=== PATIENT | male | born 1960 | race Caucasian/White ===

== ENCOUNTER 2021-04-23 01:04 | Emergency (ER) | payer MEDICAID, OTHER ==
[~2021-04-23] VITALS: Ht 172.7 cm; Wt 158.8 kg
[2021-04-23 08:08] LABS: Basophils # (auto) 0.1 10 ^3/uL (0-0.2); Basophils % (auto) 0.6 % (0.0-2.0); Eosinophils # (auto) 0.1 10 ^3/uL (0-0.8); Eosinophils % (auto) 1.1 % (0.0-7.0); Hematocrit 46.7 % (41.0-53.0); Hemoglobin 15.3 g/dL (13.5-17.5); Lymphocytes # (auto) 1.6 10 ^3/uL (0.4-5.4); Lymphocytes % (auto) 15.6 % (10.0-50.0); Mean Corpuscular Hemoglobin 30.2 pg (28.0-32.0); Mean Corpuscular Hgb Conc. 32.8 g/dL (32.0-36.0); Mean Corpuscular Volume 92.1 fL (80.0-100.0); Monocytes # (auto) 0.8 10 ^3/uL (0-1.3); Monocytes % (auto) 7.7 % (0.0-12.0); Neutrophils # (auto) 7.9 10 ^3/uL (1.6-8.6); Nucleated Red Blood Cells % 0.1 %; Red Blood Cells 5.07 10^6/uL (4.5-5.90); Red Cell Distribution Width 15.6 % (11.8-14.3); White Blood Cell 10.5 10^3/uL (4.4-10.8)
[2021-04-23] MEDS ORDERED: SODIUM CHLORIDE 0.9% 1,000 ML IV ONE (08:15)
[2021-04-23 08:19] LABS: INR 1.02 (0.9-1.15); Partial Thromboplastin Time 25.1 sec (23.6-33.0)
[2021-04-23 08:21] LABS: Albumin 3.5 g/dL (3.4-5.0); Potassium 4.8 mmol/L (3.5-5.1)
[2021-04-23 08:28] LABS: Urine WBC None Seen /hpf (0 - 3)
[2021-04-23 08:28] LABS: BUN/Creatinine Ratio 20.9; Bilirubin, Total 0.4 mg/dL (0.2-1.0); Total Protein 6.6 g/dL (6.4-8.2)
[2021-04-23 08:38] LABS: Urine Amorphous Crystal FEW /hpf (None Seen); Urine Bacteria NONE SEEN /hpf (None Seen); Urine Blood Negative /uL (Negative); Urine Mucus FEW (None Seen); Urine Specific Gravity 1.031 (1.001-1.035)
[2021-04-23] MEDS ORDERED: NEOMYCIN-BACITRACIN-POLYM 15GM TOP OINT TOP STA (15:57)
[2021-04-23 16:01] VITALS: BP 123/69
== END 2021-04-23 16:08 | disposition home or self-care (01) ==
LOC: ER 01:11
DX: S00.01XA Abrasion of scalp, initial encounter (principal); G47.30 Sleep apnea, unspecified; G47.419 Narcolepsy without cataplexy; E11.65 Type 2 diabetes mellitus with hyperglycemia; I10 Essential (primary) hypertension; Z20.822 Contact with and (suspected) exposure to COVID-19; W18.09XA Striking against other object with subsequent fall, initial encounter; Y93.89 Activity, other specified; Y92.098 Other place in other non-institutional residence as the place of occurrence of the external cause; Y99.8 Other external cause status
CPT/HCPCS: 36415; 70450; 71045; 80053; 81001; 83735; 83880; 84443; 84484; 85025; 85610; 85730; 87426; 93005; 94660; 96360; 96361; 99285; C9803; J7030; U0003

== ENCOUNTER 2021-11-07 18:29 | Inpatient (IN) | payer MEDICAID ==
[~2021-11-07] VITALS: Ht 172.7 cm; Wt 159.3 kg
[2021-11-07 19:29] LABS: Basophils # (auto) 0 10 ^3/uL (0-0.2); Basophils % (auto) 0.3 % (0.0-2.0); Eosinophils # (auto) 0.1 10 ^3/uL (0-0.8); Eosinophils % (auto) 1.1 % (0.0-7.0); Hematocrit 49.9 % (41.0-53.0); Hemoglobin 15.5 g/dL (13.5-17.5); Lymphocytes # (auto) 1.7 10 ^3/uL (0.4-5.4); Lymphocytes % (auto) 19.8 % (10.0-50.0); Mean Corpuscular Hemoglobin 28.4 pg (28.0-32.0); Mean Corpuscular Hgb Conc. 31.1 g/dL (32.0-36.0); Mean Corpuscular Volume 91.3 fL (80.0-100.0); Monocytes # (auto) 0.6 10 ^3/uL (0-1.3); Monocytes % (auto) 7.5 % (0.0-12.0); Neutrophils # (auto) 6.1 10 ^3/uL (1.6-8.6); Neutrophils % (auto) 71.3 % (37.0-80.0); Nucleated Red Blood Cells % 0.2 %; Red Blood Cells 5.46 10^6/uL (4.5-5.90); Red Cell Distribution Width 16.3 % (11.8-14.3); White Blood Cell 8.6 10^3/uL (4.4-10.8)
[2021-11-07 19:33] LABS: Albumin 3.3 g/dL (3.4-5.0); Calcium 8.7 mg/dL (8.5-10.1); Potassium 4.8 mmol/L (3.5-5.1)
[2021-11-07 19:36] LABS: BUN/Creatinine Ratio 12.4; Bilirubin, Total 0.4 mg/dL (0.2-1.0); Total Protein 6.1 g/dL (6.4-8.2)
[2021-11-07] MEDS ORDERED: FUROSEMIDE 40 MG/4 ML VIAL IV ONE (20:00)
[2021-11-07] MEDS ORDERED: methylPREDNISolone SOD SUCC 125 MG/2 ML VL IV ONE (20:00)
[2021-11-07] MEDS ORDERED: InsuLIN REG 1unit/0.01ml Soln (100units/ml) IV ONE (20:15)
[2021-11-07 20:32] LABS: Urine Bacteria NONE SEEN /hpf (None Seen); Urine Blood Negative /uL (Negative); Urine Specific Gravity 1.027 (1.001-1.035); Urine WBC <1 /hpf (0 - 3)
[2021-11-07] MEDS ORDERED: PIPERACILLIN-TAZOB 3.375GM 100 ML IV ONE (21:45)
[2021-11-07] MEDS ORDERED: AZITHROMYCIN 500MG/ 250ML 250 ML IV ONE (21:45)
[2021-11-07] MEDS ORDERED: TEMAZEPAM 15 MG CAP PO PRN (22:00)
[2021-11-07] MEDS ORDERED: DEXTROSE (50%) 50ML SYRG IV PRN (22:00)
[2021-11-07] MEDS ORDERED: ALBUTEROL SULF 2.5 MG/0.5ML(0.5%) NEB SOLN NEB PRN (22:00)
[2021-11-07] MEDS ORDERED: MORPHINE SULFATE INJ 2 MG/ml SYRG IV PRN (22:00)
[2021-11-07] MEDS ORDERED: ONDANSETRON HCL 4 MG/2 ML VIAL IV PRN (22:00)
[2021-11-07] MEDS ORDERED: ACETAMINOPHEN 325 MG TAB PO PRN (22:00)
[2021-11-07] MEDS ORDERED: cefTRIAXone 1GM/50ML D5W 50 ML IV ONE (22:00)
[2021-11-07] MEDS ORDERED: NITROGLYCERIN 0.4 MG SL TAB SL PRN (22:00)
[2021-11-07] MEDS: ATORVASTATIN 20 MG TAB PO SCH (23:54)
[2021-11-08] MEDS ORDERED: DEXTROSE (50%) 50ML SYRG IV PRN ×2 (01:00→06:00)
[2021-11-08 03:43] VITALS: BP 149/89
[2021-11-08] MEDS ORDERED: ACCU-CHEK COMFORT CURVE STRIP VI SCH ×2 (04:00)
[2021-11-08] MEDS ORDERED: InsuLIN REG 1unit/0.01ml Soln (100units/ml) SC SCH ×2 (04:00)
[2021-11-08] MEDS ORDERED: INSULIN LANTUS (GLARGINE) 1 /0.01ml (100units/ml) SC ONE ×3 (06:00→19:30)
[2021-11-08] MEDS ORDERED: InsuLIN R (HUMAN) 100 UNITS in SODIUM CHL 0.9% 99 ML IV SCH (06:00)
[2021-11-08] MEDS: ACCU-CHEK COMFORT CURVE STRIP VI SCH ×9 (06:14→18:00)
[2021-11-08] MEDS ORDERED: InsuLIN REG 1unit/0.01ml Soln (100units/ml) ONE (06:25)
[2021-11-08 06:37] LABS: Basophils # (auto) 0 10 ^3/uL (0-0.2); Basophils % (auto) 0.4 % (0.0-2.0); Eosinophils # (auto) 0 10 ^3/uL (0-0.8); Hematocrit 52.9 % (41.0-53.0); Hemoglobin 17.4 g/dL (13.5-17.5); Lymphocytes # (auto) 0.5 10 ^3/uL (0.4-5.4); Lymphocytes % (auto) 5.5 % (10.0-50.0); Mean Corpuscular Hemoglobin 30.1 pg (28.0-32.0); Mean Corpuscular Hgb Conc. 32.9 g/dL (32.0-36.0); Mean Corpuscular Volume 91.6 fL (80.0-100.0); Monocytes # (auto) 0.2 10 ^3/uL (0-1.3); Monocytes % (auto) 2.1 % (0.0-12.0); Neutrophils # (auto) 7.6 10 ^3/uL (1.6-8.6); Nucleated Red Blood Cells % 0.1 %; Red Blood Cells 5.77 10^6/uL (4.5-5.90); Red Cell Distribution Width 15.9 % (11.8-14.3); White Blood Cell 8.2 10^3/uL (4.4-10.8)
[2021-11-08 06:56] LABS: Albumin 3.6 g/dL (3.4-5.0); Calcium 9.2 mg/dL (8.5-10.1); Potassium 4.8 mmol/L (3.5-5.1)
[2021-11-08 06:58] LABS: BUN/Creatinine Ratio 13.9
[2021-11-08 07:00] LABS: Bilirubin, Total 0.4 mg/dL (0.2-1.0)
[2021-11-08] MEDS ORDERED: AZITHROMYCIN 500MG/ 250ML 250 ML IV SCH (10:00)
[2021-11-08] MEDS ORDERED: methylPREDNISolone SOD SUCC 125 MG/2 ML VL IV SCH (10:00)
[2021-11-08] MEDS: LISINOPRIL 20 MG TAB PO SCH (10:20)
[2021-11-08] MEDS: ENOXAPARIN SOD 40 MG/0.4 ML SYRINGE SC SCH (10:20)
[2021-11-08] MEDS: cefTRIAXone 1GM/50ML D5W 50 ML IV SCH (12:40)
[2021-11-08] MEDS ORDERED: InsuLIN REG 1unit/0.01ml Soln (100units/ml) IV ONE (18:15)
[2021-11-08] MEDS: ATORVASTATIN 20 MG TAB PO SCH (22:09)
[2021-11-08] MEDS ORDERED: CHOL20007 PO (23:25)
[2021-11-08] MEDS ORDERED: POTA10TA51 PO (23:25)
[2021-11-08] MEDS ORDERED: INSLISPI SC (23:25)
[2021-11-08] MEDS ORDERED: FURO1TAB33 PO (23:25)
[2021-11-08] MEDS ORDERED: LISI2.5T47 PO (23:25)
[2021-11-08] MEDS ORDERED: INSLANTI SC (23:25)
[2021-11-09 05:00] VITALS: BP 137/84
[2021-11-09 08:56] VITALS: BP 127/91
[2021-11-09] MEDS ORDERED: cefTRIAXone 1GM/50ML D5W 50 ML IV SCH ×2 (09:00→22:00)
[2021-11-09] MEDS: cefTRIAXone 1GM/50ML D5W 50 ML IV SCH (09:07)
[2021-11-09] MEDS ORDERED: LISI30TA4 PO (09:19)
[2021-11-09] MEDS ORDERED: ATOR20TA50 PO (09:19)
[2021-11-09] MEDS ORDERED: CINN500T PO (09:20)
[2021-11-09] MEDS ORDERED: CHRO400T3 PO (09:20)
[2021-11-09] MEDS: AZITHROMYCIN 500MG/ 250ML 250 ML IV SCH (09:49)
[2021-11-09] MEDS: ENOXAPARIN SOD 40 MG/0.4 ML SYRINGE SC SCH (09:51)
[2021-11-09] MEDS: LISINOPRIL 20 MG TAB PO SCH (09:52)
[2021-11-09] MEDS ORDERED: INSULIN LANTUS (GLARGINE) 1 /0.01ml (100units/ml) SC SCH (10:00)
[2021-11-09] MEDS ORDERED: DEXTROSE (50%) 50ML SYRG IV PRN ×2 (10:15→12:15)
[2021-11-09] MEDS ORDERED: INSULIN LANTUS (GLARGINE) 1 /0.01ml (100units/ml) SC ONE (11:45)
[2021-11-09] MEDS ORDERED: InsuLIN REG 1unit/0.01ml Soln (100units/ml) IV ONE (11:45)
[2021-11-09] MEDS: ACCU-CHEK COMFORT CURVE STRIP VI SCH ×5 (12:02→21:01)
[2021-11-09] MEDS: InsuLIN REG 1unit/0.01ml Soln (100units/ml) SC SCH ×6 (12:03→21:02)
[2021-11-09] MEDS ORDERED: VANCOMYCIN PER PHARMACY 0 MG IV SCH (12:15)
[2021-11-09] MEDS ORDERED: VANCOMYCIN 1GM/250ML 250 ML IV ONE (12:30)
[2021-11-09 12:43] VITALS: BP 138/99
[2021-11-09] MEDS: AMPICILLIN & SULBACTAM SODIUM 3 GM in SODIUM CHL 0.9% 100 ML IV SCH ×2 (15:30→21:36)
[2021-11-09] MEDS ORDERED: FUROSEMIDE 40 MG/4 ML VIAL IV ONE (16:15)
[2021-11-09 16:45] VITALS: BP 144/87
[2021-11-09] MEDS: ATORVASTATIN 20 MG TAB PO SCH (21:36)
[2021-11-09 21:38] VITALS: BP 132/84
[2021-11-09] MEDS: VANCOMYCIN 1GM/250ML 250 ML IV SCH (23:08)
[2021-11-10] MEDS: ACCU-CHEK COMFORT CURVE STRIP VI SCH ×6 (00:53→20:41)
[2021-11-10] MEDS: InsuLIN REG 1unit/0.01ml Soln (100units/ml) SC SCH ×7 (01:01→22:00)
[2021-11-10] MEDS: AMPICILLIN & SULBACTAM SODIUM 3 GM in SODIUM CHL 0.9% 100 ML IV SCH ×4 (03:45→22:08)
[2021-11-10 04:54] VITALS: BP 159/81
[2021-11-10 04:56] VITALS: BP 133/88
[2021-11-10] MEDS: VANCOMYCIN 1GM/250ML 250 ML IV SCH (07:10)
[2021-11-10 09:03] VITALS: BP 132/89
[2021-11-10] MEDS: ENOXAPARIN SOD 40 MG/0.4 ML SYRINGE SC SCH ×2 (10:00→10:28)
[2021-11-10] MEDS: AZITHROMYCIN 500MG/ 250ML 250 ML IV SCH (10:26)
[2021-11-10] MEDS: FUROSEMIDE 40 MG/4 ML VIAL IV SCH (10:26)
[2021-11-10] MEDS: LISINOPRIL 20 MG TAB PO SCH (10:27)
[2021-11-10] MEDS: POTASSIUM CHL 20 Meq TABLET PO SCH (10:27)
[2021-11-10] MEDS: INSULIN LANTUS (GLARGINE) 1 /0.01ml (100units/ml) SC SCH (10:28)
[2021-11-10 13:00] VITALS: BP 127/79
[2021-11-10 16:53] VITALS: BP 111/80
[2021-11-10] MEDS ORDERED: predniSONE 20 MG TAB PO ONE (18:00)
[2021-11-10] MEDS: ATORVASTATIN 20 MG TAB PO SCH (22:08)
[2021-11-10 22:38] VITALS: BP 115/79
[2021-11-11] VITALS (7 sets, daily range): BP systolic 106–149; BP diastolic 52–98
[2021-11-11] MEDS: ACCU-CHEK COMFORT CURVE STRIP VI SCH ×7 (00:26→23:22)
[2021-11-11] MEDS: InsuLIN REG 1unit/0.01ml Soln (100units/ml) SC SCH ×8 (00:27→23:24)
[2021-11-11] MEDS: AMPICILLIN & SULBACTAM SODIUM 3 GM in SODIUM CHL 0.9% 100 ML IV SCH ×4 (04:25→21:43)
[2021-11-11 06:24] LABS: Potassium 3.8 mmol/L (3.5-5.1)
[2021-11-11 06:28] LABS: BUN/Creatinine Ratio 23.2; Calcium 8.8 mg/dL (8.5-10.1)
[2021-11-11] MEDS: predniSONE 20 MG TAB PO SCH (10:30)
[2021-11-11] MEDS: POTASSIUM CHL 20 Meq TABLET PO SCH (10:30)
[2021-11-11] MEDS: AZITHROMYCIN 500MG/ 250ML 250 ML IV SCH (10:30)
[2021-11-11] MEDS: FUROSEMIDE 40 MG/4 ML VIAL IV SCH (10:30)
[2021-11-11] MEDS: ENOXAPARIN SOD 40 MG/0.4 ML SYRINGE SC SCH (10:31)
[2021-11-11] MEDS: LISINOPRIL 20 MG TAB PO SCH (10:31)
[2021-11-11] MEDS: INSULIN LANTUS (GLARGINE) 1 /0.01ml (100units/ml) SC SCH (10:32)
[2021-11-11] MEDS: ATORVASTATIN 20 MG TAB PO SCH (21:43)
[2021-11-12] MEDS: AMPICILLIN & SULBACTAM SODIUM 3 GM in SODIUM CHL 0.9% 100 ML IV SCH ×4 (03:40→21:29)
[2021-11-12] MEDS: InsuLIN REG 1unit/0.01ml Soln (100units/ml) SC SCH ×7 (03:41→23:27)
[2021-11-12] MEDS: ACCU-CHEK COMFORT CURVE STRIP VI SCH ×6 (03:41→23:26)
[2021-11-12 05:52] VITALS: BP 150/89
[2021-11-12 09:00] VITALS: BP 145/76
[2021-11-12] MEDS: predniSONE 20 MG TAB PO SCH (09:07)
[2021-11-12] MEDS: POTASSIUM CHL 20 Meq TABLET PO SCH (09:07)
[2021-11-12] MEDS: LISINOPRIL 20 MG TAB PO SCH (09:08)
[2021-11-12] MEDS: ENOXAPARIN SOD 40 MG/0.4 ML SYRINGE SC SCH (09:08)
[2021-11-12] MEDS: FUROSEMIDE 40 MG/4 ML VIAL IV SCH (09:09)
[2021-11-12] MEDS: INSULIN LANTUS (GLARGINE) 1 /0.01ml (100units/ml) SC SCH (09:23)
[2021-11-12] MEDS: AZITHROMYCIN 500MG/ 250ML 250 ML IV SCH (11:00)
[2021-11-12 13:00] VITALS: BP 150/100
[2021-11-12 17:00] VITALS: BP 133/87
[2021-11-12] MEDS: ATORVASTATIN 20 MG TAB PO SCH (21:29)
[2021-11-12 22:00] VITALS: BP 136/91
[2021-11-13] MEDS: AMPICILLIN & SULBACTAM SODIUM 3 GM in SODIUM CHL 0.9% 100 ML IV SCH ×2 (03:49→09:58)
[2021-11-13] MEDS: ACCU-CHEK COMFORT CURVE STRIP VI SCH ×3 (03:49→12:00)
[2021-11-13] MEDS: InsuLIN REG 1unit/0.01ml Soln (100units/ml) SC SCH ×3 (03:50→12:30)
[2021-11-13 05:00] VITALS: BP 149/86
[2021-11-13 09:00] VITALS: BP 117/87
[2021-11-13] MEDS: ENOXAPARIN SOD 40 MG/0.4 ML SYRINGE SC SCH (09:56)
[2021-11-13] MEDS: FUROSEMIDE 40 MG/4 ML VIAL IV SCH (09:56)
[2021-11-13] MEDS: POTASSIUM CHL 20 Meq TABLET PO SCH (09:57)
[2021-11-13] MEDS: predniSONE 20 MG TAB PO SCH (09:58)
[2021-11-13] MEDS: LISINOPRIL 20 MG TAB PO SCH (09:58)
[2021-11-13] MEDS: INSULIN LANTUS (GLARGINE) 1 /0.01ml (100units/ml) SC SCH (10:30)
[2021-11-13] MEDS: AZITHROMYCIN 500MG/ 250ML 250 ML IV SCH (11:30)
[2021-11-13 13:00] VITALS: BP 149/97
[2021-11-13 14:20] VITALS: BP 149/97
== END 2021-11-13 15:42 | disposition home or self-care (01) | DRG 139 ==
LOC: ER 18:30 → UNDOADMIN 21:53 → TELE 21:53 → CENTRAL 11-08 23:54 → TELE-CENTR 11-10 07:43
PROVIDERS: ADMIT Nurse Practitioner; ATTEND Internal Medicine Nephrology
PROC: 5A09357 Assistance with Respiratory Ventilation, Less than 24 Consecutive Hours, Continuous Positive Airway Pressure (ICD-10-PCS; principal; 2021-11-09)
PROC: 5A09357 Assistance with Respiratory Ventilation, Less than 24 Consecutive Hours, Continuous Positive Airway Pressure (ICD-10-PCS; 2021-11-10)
PROC: 5A09357 Assistance with Respiratory Ventilation, Less than 24 Consecutive Hours, Continuous Positive Airway Pressure (ICD-10-PCS; 2021-11-11)
PROC: 5A09357 Assistance with Respiratory Ventilation, Less than 24 Consecutive Hours, Continuous Positive Airway Pressure (ICD-10-PCS; 2021-11-12)
DX: J18.9 Pneumonia, unspecified organism (principal); J96.21 Acute and chronic respiratory failure with hypoxia; R78.81 Bacteremia; E11.649 Type 2 diabetes mellitus with hypoglycemia without coma; I50.32 Chronic diastolic (congestive) heart failure; I11.0 Hypertensive heart disease with heart failure; J44.0 Chronic obstructive pulmonary disease with (acute) lower respiratory infection; E66.2 Morbid (severe) obesity with alveolar hypoventilation; E11.65 Type 2 diabetes mellitus with hyperglycemia; Z20.822 Contact with and (suspected) exposure to COVID-19; J44.1 Chronic obstructive pulmonary disease with (acute) exacerbation; K76.0 Fatty (change of) liver, not elsewhere classified; Z68.43 Body mass index [BMI] 50.0-59.9, adult
CPT/HCPCS: 36415; 36600; 71045; 71250; 80048; 80053; 81001; 82565; 82805; 82962; 83036; 83605; 83735; 83880; 84484; 85025; 85049; 87040; 87070; 87077; 87081; 87186; 87205; 87804; 93970; 94660; 96365; 96366; 96368; 96372; 96375; G0378; J0696; J1815; J2543

== ENCOUNTER 2022-02-20 12:22 | Emergency (ER) | payer MEDICAID ==
[~2022-02-20] VITALS: Ht 185.4 cm; Wt 153.0 kg
[~2022-02-20 12:22] MED LIST: ATOR20TA50 PO; CHOL20007 PO; CHRO400T3 PO; CINN500T PO; FURO1TAB33 PO; INSLANTI SC; INSLISPI SC; LISI30TA4 PO; POTA10TA51 PO
[2022-02-20 15:26] VITALS: BP 115/77
[2022-02-20] MEDS ORDERED: IBUP800T26 PO (17:07)
== END 2022-02-20 17:09 | disposition home or self-care (01) ==
LOC: ER 12:27
DX: M65.4 Radial styloid tenosynovitis [de Quervain] (principal)
CPT/HCPCS: 36415; 73130; 84550

== ENCOUNTER 2022-12-07 07:25 | Inpatient (IN) | payer MEDICAID ==
[~2022-12-07] VITALS: Ht 177.8 cm; Wt 140.0 kg
[~2022-12-07 07:25] MED LIST changes: +IBUP-1455 PO; -LISI30TA4 PO; +LISI30TA8 PO
[2022-12-07] MEDS ORDERED: amLODIPine BESYLATE 5 MG TAB PO ONE (07:45)
[2022-12-07 08:05] LABS: Basophils # (auto) 0 10 ^3/uL (0-0.2); Basophils % (auto) 0.4 % (0.0-2.0); Eosinophils # (auto) 0.1 10 ^3/uL (0-0.8); Eosinophils % (auto) 0.9 % (0.0-7.0); Hematocrit 48.2 % (41.0-53.0); Hemoglobin 16.4 g/dL (13.5-17.5); Lymphocytes # (auto) 0.6 10 ^3/uL (0.4-5.4); Lymphocytes % (auto) 5.9 % (10.0-50.0); Mean Corpuscular Hemoglobin 30.6 pg (28.0-32.0); Mean Corpuscular Volume 89.9 fL (80.0-100.0); Monocytes % (auto) 9.8 % (0.0-12.0); Neutrophils # (auto) 8.6 10 ^3/uL (1.6-8.6); Nucleated Red Blood Cells % 0.3 %; Red Blood Cells 5.37 10^6/uL (4.5-5.90); Red Cell Distribution Width 15.2 % (11.8-14.3); White Blood Cell 10.4 10^3/uL (4.4-10.8)
[2022-12-07 08:14] LABS: Urine Bacteria NONE SEEN /hpf (None Seen); Urine Blood Negative /uL (Negative); Urine Clarity Clear (Clear); Urine Protein, UAD Negative (Negative); Urine Specific Gravity 1.016 (1.001-1.035); Urine Urobilinogen Normal (Negative); Urine WBC <1 /hpf (0 - 3)
[2022-12-07 08:26] LABS: Alanine Aminotransferase 23 U/L (7-40); Albumin 4.6 g/dL (3.2-4.8); Alkaline Phosphatase 82 U/L (46-116); Anion Gap 9 (5-15); Aspartate Aminotransferase 18 U/L (13-40); BUN/Creatinine Ratio 10.5 (10.0-20.0); Bilirubin, Total 0.8 mg/dL (0.2-1.0); Blood Urea Nitrogen 10 mg/dL (9-23); Calcium 9.5 mg/dL (8.5-10.1); Carbon Dioxide 25 mmol/L (20-30); Chloride 102 mmol/L (98-107); Glucose 117 mg/dL (74-106); Sodium 136 mmol/L (136-145); Total Protein 6.9 g/dL (5.7-8.2)
[2022-12-07] MEDS ORDERED: FUROSEMIDE 40 MG/4 ML VIAL IV ONE (08:30)
[2022-12-07 08:33] LABS: Urine Color Straw (Yellow)
[2022-12-07] MEDS ORDERED: ONDANSETRON HCL 4 MG/2 ML VIAL IV PRN (11:45)
[2022-12-07] MEDS ORDERED: HYDROcodone-ACET 5/325MG TAB PO PRN (11:45)
[2022-12-07] MEDS ORDERED: hydrALAZINE HCL 20 MG/ML VL IV PRN (11:45)
[2022-12-07] MEDS ORDERED: NITROGLYCERIN 0.4 MG SL TAB SL PRN (11:45)
[2022-12-07] MEDS ORDERED: DEXTROSE (50%) 50ML SYRG IV PRN (11:45)
[2022-12-07] MEDS ORDERED: MORPHINE SULFATE INJ 2 MG/ml SYRG IV PRN ×2 (11:45)
[2022-12-07 14:14] VITALS: PULSE 102; RESP 19; O2SAT 96
[2022-12-07] MEDS: ACETAMINOPHEN 325 MG TAB PO PRN ×2 (16:28→23:17)
[2022-12-07] MEDS: InsuLIN REG 1unit/0.01ml Soln (100units/ml) SC SCH ×2 (16:33→23:22)
[2022-12-07] MEDS: ACCU-CHEK COMFORT CURVE STRIP VI SCH ×2 (16:35→23:17)
[2022-12-07 17:32] VITALS: BP 149/88; PULSE 101; RESP 25; O2SAT 96
[2022-12-07] MEDS: FUROSEMIDE 40 MG/4 ML VIAL IV SCH (18:33)
[2022-12-07 19:40] VITALS: PULSE 92; RESP 24; O2SAT 94
[2022-12-07 22:39] VITALS: PULSE 91
[2022-12-07 23:00] VITALS: O2SAT 96
[2022-12-07 23:09] VITALS: BP 114/70; PULSE 93; RESP 19; RESP 20; TEMP 98.7; O2SAT 93
[2022-12-08] VITALS (8 sets, daily range): BP systolic 122–142; BP diastolic 71–85; PULSE 69–99; RESP 18–22; TEMP 97.6–99.7; O2SAT 90–98
[2022-12-08 05:50] LABS: Hematocrit 48.4 % (41.0-53.0); Hemoglobin 16.2 g/dL (13.5-17.5); Mean Corpuscular Hemoglobin 30.5 pg (28.0-32.0); Mean Corpuscular Hgb Conc. 33.6 g/dL (32.0-36.0); Mean Corpuscular Volume 90.8 fL (80.0-100.0); Red Blood Cells 5.33 10^6/uL (4.5-5.90); Red Cell Distribution Width 15.1 % (11.8-14.3); White Blood Cell 8.5 10^3/uL (4.4-10.8)
[2022-12-08 06:06] LABS: Basophils % (manual) 0 (0.0-2.0); Eosinophils % (manual) 0 (0-7); Metamyelocytes % 0; Myelocytes % 0; Promyelocytes % 0
[2022-12-08 06:07] LABS: Blast Cells 0; Reactive Lymphocytes 0
[2022-12-08 06:18] LABS: Alanine Aminotransferase 18 U/L (7-40); Albumin 4.4 g/dL (3.2-4.8); Alkaline Phosphatase 81 U/L (46-116); Anion Gap 8 (5-15); Aspartate Aminotransferase 12 U/L (13-40); BUN/Creatinine Ratio 9.1 (10.0-20.0); Bilirubin, Total 0.6 mg/dL (0.2-1.0); Blood Urea Nitrogen 10 mg/dL (9-23); Calcium 9.3 mg/dL (8.7-10.4); Carbon Dioxide 27 mmol/L (20-30); Chloride 100 mmol/L (98-107); Glucose 122 mg/dL (74-106); Potassium 3.6 mmol/L (3.5-5.1); Sodium 135 mmol/L (136-145); Total Protein 6.8 g/dL (5.7-8.2)
[2022-12-08] MEDS: FUROSEMIDE 40 MG/4 ML VIAL IV SCH ×2 (06:41→17:28)
[2022-12-08] MEDS: ACCU-CHEK COMFORT CURVE STRIP VI SCH ×4 (06:41→22:27)
[2022-12-08] MEDS: InsuLIN REG 1unit/0.01ml Soln (100units/ml) SC SCH ×4 (06:46→22:27)
[2022-12-08 08:11] LABS: Band Neutrophils % (manual) 1; Lymphocytes % (manual) 17 (10.0-50.0); Monocytes % (manual) 8 (0-12); Platelet Estimate Adequate
[2022-12-08] MEDS: ENOXAPARIN SOD 40 MG/0.4 ML SYRINGE SC SCH (10:59)
[2022-12-08] MEDS: NIFEdipine ER 30 MG TAB PO SCH (10:59)
[2022-12-09 05:00] VITALS: BP 140/72; PULSE 87; RESP 16; TEMP 98.4; O2SAT 94
[2022-12-09] MEDS: FUROSEMIDE 40 MG/4 ML VIAL IV SCH (05:56)
[2022-12-09] MEDS: InsuLIN REG 1unit/0.01ml Soln (100units/ml) SC SCH ×2 (05:56→11:29)
[2022-12-09] MEDS: ACCU-CHEK COMFORT CURVE STRIP VI SCH ×2 (05:57→11:29)
[2022-12-09 08:00] VITALS: PULSE 90
[2022-12-09 08:47] VITALS: BP 129/80; PULSE 90; RESP 18; TEMP 97.6; O2SAT 91
[2022-12-09 09:15] VITALS: O2SAT 96
[2022-12-09] MEDS: NIFEdipine ER 30 MG TAB PO SCH (09:27)
[2022-12-09] MEDS: ENOXAPARIN SOD 40 MG/0.4 ML SYRINGE SC SCH (09:27)
[2022-12-09 13:00] VITALS: BP 134/76; PULSE 84; RESP 18; TEMP 97.7; O2SAT 95
== END 2022-12-09 16:00 | disposition home or self-care (01) | DRG 194 ==
LOC: ER 07:25 → TELE 11:42 → TELE-WESTW 22:42
PROVIDERS: ADMIT Internal Medicine; ATTEND Internal Medicine
DX: I11.0 Hypertensive heart disease with heart failure (principal); J96.02 Acute respiratory failure with hypercapnia; E66.2 Morbid (severe) obesity with alveolar hypoventilation; I16.0 Hypertensive urgency; I50.33 Acute on chronic diastolic (congestive) heart failure; E78.5 Hyperlipidemia, unspecified; E11.9 Type 2 diabetes mellitus without complications; Z79.4 Long term (current) use of insulin; Z68.41 Body mass index [BMI] 40.0-44.9, adult; Z91.148 Patient's other noncompliance with medication regimen for other reason
CPT/HCPCS: 36415; 71045; 80053; 81001; 82962; 83036; 83880; 84443; 84484; 85007; 85025; 85027; 93005; 93306; 96374; 99291; G0378; J1815

== ENCOUNTER 2023-05-20 07:10 | Inpatient (IN) | payer MEDICAID ==
[~2023-05-20] VITALS: Ht 172.7 cm; Wt 145.4 kg
[~2023-05-20 07:10] MED LIST changes: -IBUP-1455 PO; -LISI30TA8 PO
[2023-05-20 07:38] LABS: Basophils # (auto) 0.1 10 ^3/uL (0-0.2); Basophils % (auto) 0.6 % (0.0-2.0); Eosinophils # (auto) 0.2 10 ^3/uL (0-0.8); Hemoglobin 19.8 g/dL (13.5-17.5); Monocytes # (auto) 0.9 10 ^3/uL (0-1.3)
[2023-05-20 07:54] LABS: Alanine Aminotransferase 13 U/L (7-40); Albumin 4.4 g/dL (3.2-4.8); Alkaline Phosphatase 82 U/L (46-116); Anion Gap 8 (5-15); Aspartate Aminotransferase 17 U/L (13-40); BUN/Creatinine Ratio 9.5 (10.0-20.0); Bilirubin, Total 0.6 mg/dL (0.2-1.0); Blood Urea Nitrogen 9 mg/dL (9-23); Calcium 9.9 mg/dL (8.5-10.1); Carbon Dioxide 26 mmol/L (20-30); Chloride 101 mmol/L (98-107); Glucose 199 mg/dL (74-106); Potassium 4.5 mmol/L (3.5-5.1); Sodium 135 mmol/L (136-145); Total Protein 6.9 g/dL (5.7-8.2)
[2023-05-20 07:58] LABS: Eosinophils % (auto) 1.7 % (0.0-7.0); Lymphocytes # (auto) 1.7 10 ^3/uL (0.4-5.4); Monocytes % (auto) 8.7 % (0.0-12.0); Neutrophils # (auto) 7.9 10 ^3/uL (1.6-8.6); Nucleated Red Blood Cells % 0.7 %; Red Blood Cells 6.59 10^6/uL (4.5-5.90); Red Cell Distribution Width 17.7 % (11.8-14.3); White Blood Cell 10.8 10^3/uL (4.4-10.8)
[2023-05-20 08:00] LABS: Urine Bacteria NONE SEEN /hpf (None Seen); Urine Blood Negative /uL (Negative); Urine Clarity Clear (Clear); Urine Protein, UAD Negative (Negative); Urine Specific Gravity 1.029 (1.001-1.035); Urine Urobilinogen Normal (Negative); Urine WBC 1 /hpf (0 - 3); Urine pH 5.5 (5.0-8.0)
[2023-05-20 08:01] LABS: Urine Color Straw (Yellow)
[2023-05-20] MEDS: LABETALOL HCL 5 MG/ML 4ML SYRINGE IV ONE (08:54)
[2023-05-20] MEDS: FUROSEMIDE 40 MG/4 ML VIAL IV ONE (08:54)
[2023-05-20 11:07] VITALS: PULSE 100; RESP 20; O2SAT 93
[2023-05-20] MEDS: REGADENOSON 0.4 MG/5 ML SYRG IV ONE ×2 (11:47→12:11)
[2023-05-20] MEDS ORDERED: ONDANSETRON HCL 4 MG/2 ML VIAL IV PRN (15:45)
[2023-05-20] MEDS ORDERED: HYDROcodone-ACET 5/325MG TAB PO PRN ×2 (15:45)
[2023-05-20] MEDS ORDERED: NITROGLYCERIN 0.4 MG SL TAB SL PRN (15:45)
[2023-05-20] MEDS ORDERED: MORPHINE SULFATE INJ 2 MG/ml SYRG IV PRN (15:45)
[2023-05-20 17:05] LABS: LDL Cholesterol 76 mg/dL (< 100); Triglycerides 207 mg/dL (< 150)
[2023-05-20 17:06] LABS: HDL Cholesterol 35 mg/dL (40-59)
[2023-05-20 17:07] LABS: Cholesterol 131 mg/dL (< 200)
[2023-05-20] MEDS: cefTRIAXone 1GM/50ML D5W 50 ML IV ONE (18:48)
[2023-05-20] MEDS: FUROSEMIDE 20 MG/2 ML VIAL IV SCH (18:50)
[2023-05-20] MEDS: ALBUTEROL SULF 2.5 MG/0.5ML(0.5%) NEB SOLN NEB PRN (20:02)
[2023-05-20] MEDS ORDERED: POTASSIUM CHL 10 Meq TABLET PO SCH (22:00)
[2023-05-20] MEDS: INSULIN LANTUS (GLARGINE) 1 /0.01ml (100units/ml) SC SCH (22:22)
[2023-05-21] VITALS (9 sets, daily range): BP systolic 112–134; BP diastolic 74–98; PULSE 78–105; RESP 15–22; TEMP 97.4–98; O2SAT 91–97
[2023-05-21 07:34] LABS: Chloride 99 mmol/L (98-107); Potassium 4.1 mmol/L (3.5-5.1); Sodium 134 mmol/L (136-145)
[2023-05-21 07:35] LABS: Anion Gap 7 (5-15); Carbon Dioxide 28 mmol/L (20-30)
[2023-05-21 07:36] LABS: Calcium 9.8 mg/dL (8.5-10.1)
[2023-05-21 07:40] LABS: BUN/Creatinine Ratio 10.6 (10.0-20.0); Blood Urea Nitrogen 11 mg/dL (9-23); Glucose 181 mg/dL (74-106)
[2023-05-21 07:43] LABS: White Blood Cell 11.2 10^3/uL (4.4-10.8)
[2023-05-21 07:44] LABS: Hemoglobin 19.8 g/dL (13.5-17.5); Mean Corpuscular Hemoglobin 29.8 pg (28.0-32.0); Mean Corpuscular Hgb Conc. 32.6 g/dL (32.0-36.0); Mean Corpuscular Volume 91.3 fL (80.0-100.0); Red Blood Cells 6.66 10^6/uL (4.5-5.90); Red Cell Distribution Width 18.6 % (11.8-14.3)
[2023-05-21 07:50] LABS: Hematocrit 60.8 % (41.0-53.0)
[2023-05-21 07:52] LABS: Band Neutrophils % (manual) 0; Basophils % (manual) 0 (0.0-2.0); Blast Cells 0; Metamyelocytes % 0; Myelocytes % 0; Promyelocytes % 0; Reactive Lymphocytes 0
[2023-05-21] MEDS: ATORVASTATIN 20 MG TAB PO SCH (09:09)
[2023-05-21] MEDS: ASPirin-EC 81 mg tab PO SCH (09:09)
[2023-05-21] MEDS: cefTRIAXone 1GM/50ML D5W 50 ML IV SCH (09:09)
[2023-05-21 09:28] LABS: Eosinophils % (manual) 2 (0-7); Giant Platelets Few; Lymphocytes % (manual) 20 (10.0-50.0); Monocytes % (manual) 11 (0-12); Platelet Estimate Adequate; RBC Morphology Normal
[2023-05-21] MEDS: ENOXAPARIN SOD 40 MG/0.4 ML SYRINGE SC SCH (10:00)
[2023-05-21 14:31] LABS: INR 1.1 (0.9-1.15); Prothrombin Time 11.5 sec (9.3-11.8)
[2023-05-21] MEDS ORDERED: INSU100I70 SC (16:46)
[2023-05-21] MEDS ORDERED: FURO1TAB31 PO (16:46)
[2023-05-21] MEDS ORDERED: ASPI81CH74 PO (16:46)
[2023-05-21] MEDS ORDERED: LOSA100T58 PO (16:46)
[2023-05-21] MEDS ORDERED: FINE10TA PO (16:46)
[2023-05-21] MEDS ORDERED: EMPA1TAB3 PO (16:46)
[2023-05-21] MEDS ORDERED: HYDR12.59 PO (16:46)
[2023-05-21] MEDS ORDERED: SEMA2INJ3 SC (16:46)
[2023-05-21] MEDS ORDERED: GLIM4TAB42 PO (16:46)
[2023-05-21] MEDS ORDERED: DEXTROSE (50%) 50ML SYRG IV PRN (17:00)
[2023-05-21] MEDS: ACCU-CHEK COMFORT CURVE STRIP VI SCH (18:03)
[2023-05-21] MEDS: InsuLIN REG 1unit/0.01ml Soln (100units/ml) SC SCH ×2 (18:04→21:23)
[2023-05-21 20:19] LABS: Amphetamine Screen, Urine Neg (NEGATIVE); Barbiturate Scree,Urine Neg (NEGATIVE); Benzodiazephine Screen, Urine Neg (NEGATIVE); Cocaine Screen, Urine Neg (NEGATIVE)
[2023-05-21 20:20] LABS: Cannabinoid Screen, Urine Neg (NEGATIVE); Opiate Scree,Urine Neg (NEGATIVE); Phencyclidine Screen, Urine Neg (NEGATIVE)
[2023-05-22] VITALS (18 sets, daily range): BP systolic 122–137; BP diastolic 84–95; PULSE 78–93; RESP 13–20; TEMP 97.5–98.6; O2SAT 91–100
[2023-05-22] MEDS: IODIXANOL 320MG/ML 100ML BTL IV ONE (14:11)
[2023-05-22] MEDS: LIDOCAINE 2%HCL (LOCAL ANESTH.) INJ 20ML MDV ONE (14:11)
[2023-05-22] MEDS: ANGIOMAX 250 MG VIAL IV ONE (14:36)
[2023-05-22] MEDS: VERAPAMIL 2.5MG/ML INJ 2ML VIAL IV ONE (14:37)
[2023-05-22] MEDS: HEPARIN SODIUM (PORCINE) 5000 UNITS/ML 1ML VIAL ONE (14:37)
[2023-05-22] MEDS: fentaNYL CITRATE 100 MCG/2 ML VL ONE (14:37)
[2023-05-22] MEDS: MIDAZOLAM HCL 2MG/2ML 2ml VIAL (1mg/ml) ONE (14:37)
[2023-05-22] MEDS ORDERED: FURO20TA3 PO (16:02)
[2023-05-22] MEDS ORDERED: POTA-180 PO (16:02)
[2023-05-22] MEDS ORDERED: HYDR-3682 PO (16:04)
[2023-05-22] MEDS: CARVEDILOL 3.125 MG TAB PO SCH (21:52)
[2023-05-23] VITALS (7 sets, daily range): BP systolic 122–145; BP diastolic 73–94; PULSE 63–89; RESP 18–22; TEMP 97.8–98.3; O2SAT 92–96
[2023-05-23 07:17] LABS: Chloride 100 mmol/L (98-107); Potassium 3.8 mmol/L (3.5-5.1); Sodium 134 mmol/L (136-145)
[2023-05-23 07:18] LABS: Anion Gap 9 (5-15); Calcium 9.1 mg/dL (8.5-10.1); Carbon Dioxide 25 mmol/L (20-30)
[2023-05-23 07:23] LABS: BUN/Creatinine Ratio 9.8 (10.0-20.0); Blood Urea Nitrogen 9 mg/dL (9-23); Glucose 174 mg/dL (74-106)
[2023-05-23 07:44] LABS: Magnesium 2.2 mg/dL (1.6-2.6)
[2023-05-23] MEDS: POTASSIUM CHL 10 Meq TABLET PO SCH (09:52)
[2023-05-23] MEDS: LISINOPRIL 5 MG TAB PO SCH (09:52)
[2023-05-23] MEDS: FUROSEMIDE 40 MG/4 ML VIAL IV SCH (09:53)
[2023-05-23] MEDS ORDERED: CAR3125T PO (14:37)
== END 2023-05-23 17:24 | disposition home or self-care (01) | DRG 192 ==
LOC: ER 07:10 → TELE 15:43 → TELE-WESTW 05-21 08:40
PROVIDERS: ADMIT Hospitalist; ATTEND Hospitalist
PROC: 4A023N7 Measurement of Cardiac Sampling and Pressure, Left Heart, Percutaneous Approach (ICD-10-PCS; principal; 2023-05-22)
PROC: B2111ZZ Fluoroscopy of Multiple Coronary Arteries using Low Osmolar Contrast (ICD-10-PCS; 2023-05-22)
DX: I11.0 Hypertensive heart disease with heart failure (principal); I42.0 Dilated cardiomyopathy; E11.65 Type 2 diabetes mellitus with hyperglycemia; J44.1 Chronic obstructive pulmonary disease with (acute) exacerbation; G47.30 Sleep apnea, unspecified; E66.01 Morbid (severe) obesity due to excess calories; Z82.49 Family history of ischemic heart disease and other diseases of the circulatory system; Z79.4 Long term (current) use of insulin; Z68.33 Body mass index [BMI] 33.0-33.9, adult; I50.33 Acute on chronic diastolic (congestive) heart failure
CPT/HCPCS: 36415; 71045; 78452; 80048; 80053; 80061; 80307; 81001; 82962; 83036; 83735; 83880; 85007; 85025; 85027; 85379; 85610; 86850; 86900; 86901; 93005; 93017; 93306; 93458; 93970; 94640; 96365; 96375; 99152; 99291; G0378; J1815; J2250; Q9967

== ENCOUNTER 2024-04-02 15:07 | Inpatient (IN) | payer MEDICAID ==
[~2024-04-02] VITALS: Ht 172.7 cm; Wt 148.0 kg
[~2024-04-02 15:07] MED LIST changes: +ASPI81CH74 PO; +CAR3125T PO; -CHRO400T3 PO; -CINN500T PO; +EMPA1TAB3 PO; +FINE10TA PO; -FURO1TAB33 PO; +FURO20TA3 PO; +GLIM4TAB42 PO; +HYDR-3682 PO; -INSLANTI SC; +INSU100I70 SC; +LOSA-535 PO; +POTA-180 PO; -POTA10TA51 PO; +SEMA2INJ3 SC
--- NOTE | 2024-04-02 15:44 | ECG ---
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
[2024-04-02 16:00] VITALS: PULSE 80; RESP 20; O2SAT 92
--- NOTE | 2024-04-02 16:10 | ED.PDOC ---
History of Present Illness HPI Comments This is a 63-year-old male who comes in with chief complaint of shortness a breath. The symptoms have been increasing over the past one month. The patient was currently not on home oxygen. The patient has a history of possible CHF. The patient checks his pulse oximeter and states that it was be low 80%. Upon arrival, the patient's oxygen saturation went up to around 84% on room air. The patient was then placed on oxygen immediately. There has been no chest pain or vomiting. The patient was having leg swelling as well as redness to the legs. The patient states that he is compliant with his medications and takes Lasix at times. Chief Complaint: Shortness of Breath Time Seen by MD: 15:15 Primary Care Provider: SHANTI Reviewed Notes: Nurses Notes, Medications, Allergies (No allergies to medications) Allergies: Coded Allergies: NO KNOWN ALLERGIES (Unverified , 02/20/22) Home Meds Active Scripts Carvedilol (Coreg) 3.125 Mg Tab, 1 TAB PO BID, #90 TAB 1 Refill Prov:YUN REAVES MD 05/23/23 Reported Medications Hydroxyzine Hcl (Hydroxyzine Hcl) 25 Mg Tab, 1 TAB PO BID 05/22/23 Furosemide (Furosemide) 20 Mg Tab, 1 TAB PO TID 05/22/23 Potassium Chloride (Potassium Chloride ER) 20 Meq Tab, 1 TAB PO DAILY 05/22/23 Semaglutide (Ozempic) 2 Mg/3 Ml Inj, 2 MG SC QWEEKLY, INJ 05/21/23 Insulin Glargine-Yfgn (Insulin Glargine) 100 Unit/Ml Inj, 35 UNIT SC HS, INJ 05/21/23 Empagliflozin (Jardiance) 25 Mg Tab, 25 MG PO DAILY, TAB 05/21/23 Finerenone (Kerendia) 10 Mg Tab, 10 MG PO DAILY, TAB 05/21/23 Losartan Potassium (Losartan Potassium) 100 Mg Tab, 100 MG PO DAILY for 30 Days, MG 05/21/23 Aspirin (Aspirin 81 Low Dose) 81 Mg Chw, 81 MG PO DAILY, TAB.CHEW 05/21/23 Glimepiride (Glimepiride) 4 Mg Tab, 1 TAB PO DAILY, #30 TAB 5 Refills 05/21/23 Atorvastatin Calcium (ATORVASTATIN CALCIUM) 20 Mg Tab, 20 MG PO DAILY, TAB 11/09/21 Cholecalciferol (VITAMIN D3) 2,000 Unit Tab, 1 TAB PO DAILY, #30 TAB 5 Refills 11/08/21 Insulin Lispro (Human) (Humalog) 100 Unit/Ml Inj, SC, INJ 11/08/21 Information Source: Patient Mode of Arrival: Ambulatory Severity: Moderate Timing: Days Duration: Since onset Prehospital treatment: None Associated signs and symptoms Shortness of breaths with leg swelling and redness to the legs. The patient denies any chest pain Past Medical History PAST MEDICAL HISTORY: CHF, DM, High Lipids, HTN Surgical History: Denies all surgeries Family History Family History: Family hx of heart karin Social History Smoker: Non-Smoker Alcohol: Occasionally Drugs: Denies Drug Use Lives In: Home Constitutional: denies: chills, diaphoresis, fatigue, fever, malaise, sweats, weakness, others EENTM: denies: blurred vision, double vision, ear bleeding, ear discharge, ear drainage, ear pain, ear ringing, eye pain, eye redness, hearing loss, mouth pain, mouth swelling, nasal discharge, nose bleeding, nose congestion, nose pain, photophobia, tearing, throat pain, throat swelling, voice changes, others Respiratory: reports: cough, shortness of breath; denies: hemoptysis, orthopnea, SOB at rest, SOB with excertion, stridor, wheezing, others Cardiovascular: denies: chest pain, dizzy spells, diaphoresis, Dyspnea on exertion, edema, irregular heart beat, left arm pain, lightheadedness, palpitations, PND, syncope, others Gastrointestinal: denies: abdomen distended, abdominal pain, blood streaked bowels, constipated, diarrhea, dysphagia, difficulty swallowing, hematemesis, melena, nausea, poor appetite, poor fluid intake, rectal bleeding, rectal pain, vomiting, others Genitourinary: denies: burning, dysuria, flank pain, frequency, hematuria, incontinence, penile discharge, penile sore, pain, testicle pain, testicle swelling, urgency, others Neurological: denies: dizziness, fainting, headache, left sided numbness, left sided weakness, numbness, paresthesia, pre-existing deficit, right sided numbn ess, right sided weakness, seizure, speech problems, tingling, tremors, weakness, others Musculoskeletal: reports: others (Bilateral leg swelling); denies: back pain, gout, joint pain, joint swelling, muscle pain, muscle stiffness, neck pain Integumetry: denies: bruises, change in color, change in hair/nails, dryness, laceration, lesions, lumps, rash, wounds, others Allergic/Immunocompromised: denies: Difficulty Healing, Frequent Infections, Hives, Itching, others Hematologic/Lymphatic: denies: anemia, blood clots, easy bleeding, easy bruising, swollen glands, others Endocrine: denies: excessive hunger, excessive sweating, excessive thirst, excessive urination, flushing, intolerance to cold, intolerance to heat, unexplained weight gain, unexplained weight loss, others Psychiatric: denies: anxiety, bipolar disorder, depression, hopeless, panic disorder, schizophrenia, sleepless, suicidal, others Physical Exam General Appearance: Moderate Distress, Obese HEENT: Normal ENT Inspection, Pharynx Normal, TMs Normal Neck: Full Range of Motion, Non-Tender, Normal, Normal Inspection Respiratory: Chest Non-Tender, Decreased Breath Sounds, No Accessory Muscle Use, Rales, Respiratory Distress Cardiovascular: No Edema, No JVD, No Murmur, No Gallop, Normal Peripheral Pulses, Regular Rate/Rhythm Breast Exam: Deferred Gastrointestinal: No Organomegaly, Non Tender, No Pulsatile Mass, Normal Bowel Sounds, Soft Genitalia: Deferred Pelvic: Deferred Rectal: Deferred Extremities: No calf tenderness, Normal capillary refill, Pedal edema Musculoskeletal : Apperance: Normal Neurologic: Alert, hydraulic spinner II-XII nml as Tested, Motor Weakness, Normal Affect, Normal Mood, No Sensory Deficits Cerebellar Function: Normal Reflexes: Normal Skin: Dry, Normal Color, Warm Lymphatic: No Adenopathy Was a procedure done? Was a procedure done?: No EKG EKG : Pulse Rate (adult): 79 [place]: Normal Cardiac Rhythm: NSR Block: None ST: Nonsp Differential Dx Considerations may include: CHF, acute on chronic diastolic heart failure, ACS, MT X-Ray, Labs, Meds, VS Vital Signs Date Time Temp Pulse Resp B/P (MAP) Pulse Ox O2 Delivery O2 Flow Rate FiO2 04/02/24 18:00 90 18 139/80 (99) 97 04/02/24 17:04 153/92 04/02/24 17:00 78 22 153/92 (112) 91 04/02/24 16:16 77 04/02/24 16:15 80 04/02/24 16:10 79 04/02/24 16:00 96.9 80 20 173/109 (130) 93 96.9 04/02/24 16:00 80 20 92 Nasal Cannula* 2 28 04/02/24 15:43 79 04/02/24 15:33 98.7 90 23 176/98 (124) 88 04/02/24 15:32 23 88 Room Air* 0 21 Lab Test 04/02/24 17:15 04/02/24 16:16 Range/Units Troponin I High Sensitivity 14 14 </=54 ng/L White Blood Count 8.1 4.4-10.8 10^3/uL Red Blood Count 5.86 4.5-5.90 10^6/uL Hemoglobin 18.4 H 13.5-17.5 g/dL Hematocrit 55.7 H 41.0-53.0 % Mean Corpuscular Volume 95.0 80.0-100.0 fL Mean Corpuscular Hemoglobin 31.4 28.0-32.0 pg Mean Corpuscular Hemoglobin Concent 33.0 32.0-36.0 g/dL Red Cell Distribution Width 15.5 H 11.8-14.3 % Platelet Count 127 L 140-450 10^3/uL Mean Platelet Volume 10.6 6.9-10.8 fL Neutrophils (%) (Auto) 62.2 37.0-80.0 % Lymphocytes (%) (Auto) 26.9 10.0-50.0 % Monocytes (%) (Auto) 9.1 0.0-12.0 % Eosinophils (%) (Auto) 1.2 0.0-7.0 % Basophils (%) (Auto) 0.6 0.0-2.0 % Neutrophils # (Auto) 5.0 1.6-8.6 10 ^3/uL Lymphocytes # (Auto) 2.2 0.4-5.4 10 ^3/uL Monocytes # (Auto) 0.7 0-1.3 10 ^3/uL Eosinophils # (Auto) 0.1 0-0.8 10 ^3/uL Basophils # (Auto) 0 0-0.2 10 ^3/uL Nucleated Red Blood Cells 0.4 % D-Dimer, Quantitative 0.22 0.0-0.49 mg/L FEU Sodium Level 134 L 136-145 mmol/L Potassium Level 4.4 3.5-5.1 mmol/L Chloride Level 101 98-107 mmol/L Carbon Dioxide Level 27 20-31 mmol/L Anion Gap 6 5-15 Blood Urea Nitrogen 14 9-23 mg/dL Creatinine 0.81 0.700-1.30 mg/dL Glomerular Filtration Rate Calc 98 >90 mL/min BUN/Creatinine Ratio 17.3 10.0-20.0 Serum Glucose 171 H 74-106 mg/dL Calcium Level 9.6 8.7-10.4 mg/dL B-Type Natriuretic Peptide 33.90 0-100 pg/mL Current Medications Medications (Trade) Dose Ordered Sig/Ana M Route Start Time Stop Time Status Last Admin Furosemide (Lasix Injection) 40 mg ONCE ONCE IV 04/02/24 16:00 04/02/24 16:01 DC 04/02/24 17:04 IV Hep-Lock was established The patient was given Lasix 40 mg IV push The patient's CBC and chemistry panel are within normal limits The patient's troponin level x2 is negative The patient was being admitted to the hospitalist A cardiology consult will be obtained Images Reviewed?: Images reviewed and evaluated by me Time of 1ST Reevaluation: 16:10 Reevaluation 1ST: Unchanged Patient Education/Counseling: Diagnosis, Treatment, Prognosis Family Education/Counseling: No Family Present Departure 1 Departure Time of Disposition: 19:22 Impression: Primary Impression: Acute on chronic diastolic heart failure Disposition: ADMITTED INPATIENT Admit to: Tele Condition: Fair Critical Care Note Critical Care Time?: Yes (45 min-critical care time only) Stability Stability form required: Yes Unstable for transfer: Telemetry monitoring (Telemetry monitoring required), ED Physician Assesment (Clinical assesment) Heart Score Heart Score: Heart Score Response (Comments) Value History Moderate Suspicious 1 EKG Repolarization Disturb 1 Age 45-64 1 Risk Factors >3 or Hx ASHD 2 Troponin Normal limit 0 Total 5 RANDY BRUSH MD Apr 02, 2024 16:10
--- NOTE | 2024-04-02 16:20 | DVH ---
XY CHEST PORTABLE, HISTORY: sob COMPARISON: XY CHEST PORTABLE on DOS: 05/20/23, XY CHEST PORTABLE on DOS: 12/07/22, CXRP on DOS: 2 XY CHEST PORTABLE on DOS: 05/20/23, XY CHEST PORTABLE on DOS: 12/07/22, CXRP on DOS: 11/07/21 TECHNICAL DATA: 1 view of the chest was obtained. FINDINGS: Lines and tubes: None Cardiomediastinal silhouette: enlarged Pulmonary vasculature: prominent Lung expansion: normal Lung airspace: normal Lung interstitium: normal Pleura: normal Pneumothorax: no Bones: Unremarkable Other: no IMPRESSION: Cardiomegaly with pulmonary congestion.
[2024-04-02 16:32] LABS: Basophils # (auto) 0 10 ^3/uL (0-0.2); Eosinophils # (auto) 0.1 10 ^3/uL (0-0.8); Red Blood Cells 5.86 10^6/uL (4.5-5.90)
[2024-04-02 16:34] LABS: Basophils % (auto) 0.6 % (0.0-2.0); Eosinophils % (auto) 1.2 % (0.0-7.0); Hematocrit 55.7 % (41.0-53.0); Hemoglobin 18.4 g/dL (13.5-17.5); Lymphocytes # (auto) 2.2 10 ^3/uL (0.4-5.4); Lymphocytes % (auto) 26.9 % (10.0-50.0); Mean Corpuscular Hemoglobin 31.4 pg (28.0-32.0); Monocytes # (auto) 0.7 10 ^3/uL (0-1.3); Monocytes % (auto) 9.1 % (0.0-12.0); Neutrophils % (auto) 62.2 % (37.0-80.0); Nucleated Red Blood Cells % 0.4 %; Platelet Count (auto) 127 10^3/uL (140-450); Red Cell Distribution Width 15.5 % (11.8-14.3); White Blood Cell 8.1 10^3/uL (4.4-10.8)
[2024-04-02 16:49] LABS: Chloride 101 mmol/L (98-107); Potassium 4.4 mmol/L (3.5-5.1)
[2024-04-02 16:51] LABS: Anion Gap 6 (5-15); BUN/Creatinine Ratio 17.3 (10.0-20.0); Blood Urea Nitrogen 14 mg/dL (9-23)
[2024-04-02 16:52] LABS: Calcium 9.6 mg/dL (8.7-10.4); Carbon Dioxide 27 mmol/L (20-31); Glucose 171 mg/dL (74-106); Sodium 134 mmol/L (136-145)
[2024-04-02] MEDS: FUROSEMIDE 40 MG/4 ML VIAL IV ONE (17:04)
[2024-04-02 19:30] VITALS: PULSE 84; RESP 17; O2SAT 94
[2024-04-02 20:00] VITALS: PULSE 89
[2024-04-02] MEDS ORDERED: NITROGLYCERIN 0.4 MG SL TAB SL PRN (20:45)
[2024-04-02] MEDS ORDERED: ONDANSETRON HCL 4 MG/2 ML VIAL IV PRN (20:45)
[2024-04-02] MEDS ORDERED: HYDROcodone-ACET 5/325MG TAB PO PRN (20:45)
[2024-04-02] MEDS ORDERED: MORPHINE SULFATE INJ 2 MG/ml SYRG IV PRN ×2 (20:45)
[2024-04-02] MEDS ORDERED: hydrALAZINE HCL 20 MG/ML VL IV PRN (20:45)
[2024-04-02] MEDS ORDERED: DOCUSATE SOD 100 MG CAP PO PRN (20:45)
[2024-04-02] MEDS ORDERED: ACETAMINOPHEN 325 MG TAB PO PRN (20:45)
[2024-04-02] MEDS ORDERED: DEXTROSE (50%) 50ML SYRG IV PRN (21:00)
[2024-04-02 22:03] VITALS: BP 141/86; PULSE 88; RESP 16; O2SAT 91
[2024-04-02] MEDS: ACCU-CHEK COMFORT CURVE STRIP VI SCH (22:35)
[2024-04-02] MEDS: InsuLIN REG 1unit/0.01ml Soln (100units/ml) SC SCH (23:07)
[2024-04-02] MEDS: ALBUTEROL SULF 2.5 MG/0.5ML(0.5%) NEB SOLN NEB SCH (23:50)
[2024-04-02 23:51] VITALS: PULSE 102; PULSE 88; RESP 16; O2SAT 92; O2SAT 98
[2024-04-02] MEDS: IPRATROPIUM BROM 0.5 MG/2.5ML INH SOL NEB SCH (23:51)
[2024-04-02 23:58] VITALS: PULSE 83; RESP 16; O2SAT 95
[2024-04-03] VITALS (14 sets, daily range): BP systolic 119–128; BP diastolic 70–79; PULSE 69–97; RESP 16–22; TEMP 97.5–97.6; O2SAT 88–96
[2024-04-03 00:49] LABS: Urine Bacteria None Seen /hpf (None Seen)
[2024-04-03 00:57] LABS: Urine Blood Negative /uL (Negative); Urine Clarity Clear (Clear); Urine Color Light-Yellow (Yellow); Urine Mucus FEW (None Seen); Urine Protein, UAD Negative (Negative); Urine Specific Gravity 1.013 (1.001-1.035); Urine Squamous Epithelial Cell None Seen /hpf (<5); Urine Urobilinogen Normal (Negative)
--- NOTE | 2024-04-03 01:29 | DVHHP2 ---
MATEUS ENGLISH OPERATIONS VICE PRESIDENT 04/03/24 0129: History of Present Illness Reason for Visit: Shortness of breath History of Present Illness 63-year-old male with past medical history DM, hypertension presents with complaints of worsening shortness of breath and leg swelling over the previous month. On arrival to the emergency department the patient was found to be hypoxic with an oxygen saturation 84%, requiring supplemental O2 at 3 L nasal cannula to maintain an O2 saturation of 93%. Patient he is not oxygen dependent at home. Patient states that he does follow with Dr. Fulton for Cardiology. However denies any significant diagnosis of congestive heart failure. During the Emergency department evaluation BNP was negative at 33; troponins negative at . CXR was significant for pulmonary congestion. At this time patient denies any fevers, chills, chest pain, nausea, vomiting, diaphoresis, palpitations. Cardiovascular: HTN Endocrine: Diabetes Smoke: No ALCOHOL: none Drugs: None Lives: with Family Review of Systems Constitutional: No: Fever, Chills, Sweats, Weakness, Malaise, Other Eyes: No: Pain, Vision change, Conjunctivae inflammation, Eyelid inflammation, Other, Redness ENT: No: Ear pain, Ear discharge, Nose pain, Nose discharge, Nose congestion, Mouth pain, Mouth swelling, Throat pain, Throat swelling, Other Respiratory: Shortness of breath, SOB with excertion; No: Cough, Dry, Wheezing, Hemoptysis, Pleuritic Pain, Sputum, Wheezing, Other Cardiovascular: No: Chest Pain, Palpitations, Orthopnea, Paroxysmal Noc. Dyspnea, Edema, Lt Headedness, Other Gastrointestinal: No: Nausea, Vomiting, Abdominal Pain, Diarrhea, Constipation, Melena, Hematochezia, Other Genitourinary: No Dysuria, No Frequency, No Incontinence, No Hematuria, No Retention, No Other Musculoskeletal: No: other, neck pain, shoulder pain, arm pain, back pain, hand pain, leg pain, foot pain Skin: No: Rash, Lesions, Jaundice, Bruising, Other Neurological: No: Weakness, Numbness, Incoordination, Change in speech, Confusion, Seizures, Other Allergies: Coded Allergies: NO KNOWN ALLERGIES (Unverified , 02/20/22) Medications Current Medications Medications Dose Ordered Sig/Ana M Route Start Time Stop Time Status Last Admin Dose Admin Docusate Sodium 100 mg BIDPRN PRN PO 04/02/24 20:45 Acetaminophen 650 mg Q6HP PRN PO 04/02/24 20:45 Acetaminophen/ Hydrocodone Bitart 1 tab Q6HPRN PRN PO 04/02/24 20:45 Ondansetron HCl 4 mg Q4HP PRN IV 04/02/24 20:45 Morphine Sulfate 2 mg Q4HPRN PRN IV 04/02/24 20:45 Enoxaparin Sodium 40 mg DAILY SC 04/03/24 10:00 Nitroglycerin 0.4 mg Q5MINP PRN SL 04/02/24 20:45 Morphine Sulfate 2 mg Q30M PRN IV 04/02/24 20:45 Albuterol 2.5 mg Q6HR NEB 04/03/24 00:00 04/02/24 23:50 2.5 MG Ipratropium [place] 0.5 mg Q6HR NEB 04/03/24 00:00 04/02/24 23:51 0.5 MG Aspirin 81 mg DAILY PO 04/03/24 10:00 Atorvastatin Calcium 20 mg DAILY PO 04/03/24 10:00 Hydralazine HCl 10 mg Q4HPRN PRN IV 04/02/24 20:45 Diagnostic Test (Pha) 1 strip ACHS 04/02/24 22:00 04/02/24 22:35 1 STRIP Insulin Human Regular ACHS SC 04/02/24 22:00 04/02/24 23:07 8 UNITS Dextrose 50 ml UD PRN IV 04/02/24 21:00 Exam Vital Signs Vital Signs Date Time Temp Pulse Resp B/P (MAP) Pulse Ox O2 Delivery O2 Flow Rate FiO2 04/03/24 00:53 75 17 148/90 (109) 93 04/02/24 23:51 Nasal Cannula* 4 36 04/02/24 23:13 98.8 98.8 General Appearance: Alert, Oriented X3, Cooperative HEENT: Atraumatic, PERRLA, EOMI Respiratory: Other (Diminished air exchange.) Cardiovascular: Regular rate, Normal S1, Normal S2 Abdominal: Normal bowel sounds, Soft, No tenderness Extremities: No clubbing, No cyanosis, Normal pulses, Other (BLE edematous) Skin: No rashes, No breakdown Neuro: Normal speech, Strength at 5/5 X4 ext Psych/Mental Status: Mood NL Labs/Xrays Labs Test 04/03/24 00:25 04/02/24 22:32 04/02/24 19:17 04/02/24 16:16 Range/Units Urine Color Light-yellow Yellow Urine Clarity Clear Clear Urine pH 5.0 5.0-9.0 Urine Specific [place] 1.013 1.001-1.035 Urine Protein Negative Negative Urine Ketones Negative Negative Urine Blood Negative Negative /uL Urine Nitrite Negative Negative Urine Bilirubin Negative Negative Urine Urobilinogen Normal Negative mg/dL Urine Leukocyte Esterase Negative Negative /uL Urine RBC None seen 0 - 3 /hpf Urine Microscopic WBC 0-3 /HPF Urine Squamous Epithelial Cells None seen <5 /hpf Urine Bacteria None seen None Seen /hpf Urine Mucus Few None Seen Urine Glucose 2+ H Normal mg/dL POC Glucose 335 H 70-106 mg/dl Troponin I High Sensitivity 15 </=54 ng/L White Blood Count 8.1 4.4-10.8 10^3/uL Red Blood Count 5.86 4.5-5.90 10^6/uL Hemoglobin 18.4 H 13.5-17.5 g/dL Hematocrit 55.7 H 41.0-53.0 % Mean Corpuscular Volume 95.0 80.0-100.0 fL Mean Corpuscular Hemoglobin 31.4 28.0-32.0 pg Mean Corpuscular Hemoglobin Concent 33.0 32.0-36.0 g/dL Red Cell Distribution Width 15.5 H 11.8-14.3 % Platelet Count 127 L 140-450 10^3/uL Mean Platelet Volume 10.6 6.9-10.8 fL Neutrophils (%) (Auto) 62.2 37.0-80.0 % Lymphocytes (%) (Auto) 26.9 10.0-50.0 % Monocytes (%) (Auto) 9.1 0.0-12.0 % Eosinophils (%) (Auto) 1.2 0.0-7.0 % Basophils (%) (Auto) 0.6 0.0-2.0 % Neutrophils # (Auto) 5.0 1.6-8.6 10 ^3/uL Lymphocytes # (Auto) 2.2 0.4-5.4 10 ^3/uL Monocytes # (Auto) 0.7 0-1.3 10 ^3/uL Eosinophils # (Auto) 0.1 0-0.8 10 ^3/uL Basophils # (Auto) 0 0-0.2 10 ^3/uL Nucleated Red Blood Cells 0.4 % D-Dimer, Quantitative 0.22 0.0-0.49 mg/L FEU Sodium Level 134 L 136-145 mmol/L Potassium Level 4.4 3.5-5.1 mmol/L Chloride Level 101 98-107 mmol/L Carbon Dioxide Level 27 20-31 mmol/L Anion Gap 6 5-15 Blood Urea Nitrogen 14 9-23 mg/dL Creatinine 0.81 0.700-1.30 mg/dL Glomerular Filtration Rate Calc 98 >90 mL/min BUN/Creatinine Ratio 17.3 10.0-20.0 Serum Glucose 171 H 74-106 mg/dL Calcium Level 9.6 8.7-10.4 mg/dL B-Type Natriuretic Peptide 33.90 0-100 pg/mL Assessment/Plan Assessment/Plan Hypoxia Acute vs Chronic Congestive heart failure (05/20/23 estimated LVEF 45%) BLE edema DM Plan Admit telemetry Cardiology consult. Echocardiogram. As needed anti-hypertensive for optimal BP management. Defer need for diuretic therapy to cardiology (BNP normal). Bronchodilators. As needed supplemental oxygen to maintain oxygen saturation greater than 93%. Blood glucose checks ACHS with regular insulin sliding scale coverage for optimal glycemic management. GI ppx pepcid / DVT ppx lovenox Plan discussed with: Patient My Orders Orders - MATEUS ENGLISH NP Procedure Category Date Status Time Admit ADMIT 04/02/24 Transmitted 20:45 Code Status CODE 04/02/24 Transmitted 20:45 Vital Signs ANGEL 04/02/24 In Process 20:45 Review Orders With ANGEL 04/02/24 In Process Adm. 20:45 Encourage Activity As ANGEL 04/02/24 In Process Tolerate 20:45 Consistent DIET 04/03/24 Transmitted Carb(Ccho)Diabetes Breakfast Oxygen By Face Mask RT 04/02/24 Transmitted 20:45 Pulse Ox Cont Per Day RT 04/02/24 Logged 20:45 Docusate Sodium PHA 04/02/24 In Process Capsule (Colace 20:45 Acetaminophen Tablet PHA 04/02/24 In Process (Tylenol Tablet) 20:45 Notify Of Changes ANGEL 04/02/24 In Process From Base 20:45 Advance Directive ANGEL 04/02/24 In Process 20:45 Echo 2d Mode Cardiac US 1/23/25 Logged DOP 20:45 Basic Metabolic Panel LAB 04/03/24 Logged 05:00 Basic Metabolic Panel LAB 04/04/24 Verified 05:00 Basic Metabolic Panel LAB 04/05/24 Verified 05:00 Basic Metabolic Panel LAB 04/06/24 Verified 05:00 Basic Metabolic Panel LAB 04/07/24 Verified 05:00 Complete Blood Count LAB 04/03/24 Logged 05:00 Complete Blood Count LAB 04/04/24 Verified 05:00 Complete Blood Count LAB 04/05/24 Verified 05:00 Complete Blood Count LAB 04/06/24 Verified 05:00 Complete Blood Count LAB 04/07/24 Verified 05:00 Patient Condition ORDERS 04/02/24 Transmitted 20:45 Allergies ANGEL 04/02/24 In Process 20:45 Hydrocodone-Acet PHA 04/02/24 In Process 5/325mg Tab ([place] 20:45 Ondansetron Hcl PHA 04/02/24 In Process (Zofran) 20:45 Morphine Sulfate PHA 04/02/24 In Process Injection 20:45 Enoxaparin Sodium PHA 04/03/24 In Process (Lovenox) 10:00 Sequential ANGEL 04/02/24 In Process Compression Device Nitroglycerin PHA 04/02/24 In Process Sublingual (Ntrostat 20:45 Morphine Sulfate PHA 04/02/24 In Process Injection 20:45 Stat Ekg For Chest ANGEL 04/02/24 In Process Pain 20:45 Notify Of Changes ANGEL 04/02/24 In Process From Base 20:45 Maintenance Man For ANGEL 04/02/24 In Process 24 Hours 20:45 Emergency Dysrhythmia ANGEL 04/02/24 In Process Protocol 20:45 Rhythm Strips Once ANGEL 04/02/24 In Process Every Shift 20:45 Oxygen By Nasal RT 04/02/24 Transmitted Cannula 20:45 * Cardiology Consult CONS 04/02/24 Transmitted 20:45 Albuterol Medneb PHA 04/03/24 In Process (Ventolin Medneb) 00:00 Ipratropium Medneb PHA 04/03/24 In Process (Atrovent Medneb) 00:00 Aspirin Enteric PHA 04/03/24 In Process Coated Tablet 10:00 Atorvastatin (Lipitor) PHA 04/03/24 In Process 10:00 Hydralazine Injection PHA 04/02/24 In Process (Apresoline Inject 20:45 Glucose Blood PHA 04/02/24 In Process (Accu-Chek Comfort 22:00 Insulin R (Human) PHA 04/02/24 In Process (Insulin R) 22:00 Dextrose 50% Syringe PHA 04/02/24 In Process 21:00 Date of Service: Apr 03, 2024 Billing Provider: YUN REAVES MD Common Visit Codes: NOT BILLABLE YUN REAVES MD 04/03/24 1459: Review of Systems Allergies: Coded Allergies: NO KNOWN ALLERGIES (Unverified , 02/20/22) Additional Comments Additional Comments Additional Comments Patient's chart is reviewed and discussed with the nurse practitioner. Patient is seen and evaluated by me this afternoon. I agree with the nurse practitioner's evaluation, documentation, assessment and care plan as outlined. MATEUS ENGLISH NP Apr 03, 2024 01:29 YUN REAVES MD Apr 03, 2024 14:59
[2024-04-03 06:16] LABS: Basophils # (auto) 0 10 ^3/uL (0-0.2); Basophils % (auto) 0.6 % (0.0-2.0); Eosinophils # (auto) 0.1 10 ^3/uL (0-0.8); Hemoglobin 18.2 g/dL (13.5-17.5); Lymphocytes # (auto) 1.9 10 ^3/uL (0.4-5.4); Nucleated Red Blood Cells % 0.2 %; Red Cell Distribution Width 15.6 % (11.8-14.3)
[2024-04-03 06:19] LABS: Eosinophils % (auto) 1.3 % (0.0-7.0); Hematocrit 53.7 % (41.0-53.0); Lymphocytes % (auto) 25.5 % (10.0-50.0); Mean Corpuscular Hemoglobin 32.2 pg (28.0-32.0); Mean Corpuscular Hgb Conc. 33.8 g/dL (32.0-36.0); Mean Corpuscular Volume 95.3 fL (80.0-100.0); Monocytes # (auto) 0.8 10 ^3/uL (0-1.3); Monocytes % (auto) 10.2 % (0.0-12.0); Neutrophils # (auto) 4.6 10 ^3/uL (1.6-8.6); Neutrophils % (auto) 62.4 % (37.0-80.0); Platelet Count (auto) 127 10^3/uL (140-450); Red Blood Cells 5.64 10^6/uL (4.5-5.90); White Blood Cell 7.4 10^3/uL (4.4-10.8)
[2024-04-03 06:32] LABS: Anion Gap 6 (5-15); Calcium 9.9 mg/dL (8.7-10.4); Carbon Dioxide 30 mmol/L (20-31); Chloride 98 mmol/L (98-107)
[2024-04-03 06:33] LABS: Sodium 134 mmol/L (136-145)
[2024-04-03 06:39] LABS: BUN/Creatinine Ratio 14.9 (10.0-20.0); Blood Urea Nitrogen 14 mg/dL (9-23)
[2024-04-03 06:41] LABS: Glucose 256 mg/dL (74-106)
[2024-04-03] MEDS: ATORVASTATIN 20 MG TAB PO SCH (07:41)
[2024-04-03] MEDS: ASPirin-EC 81 mg tab PO SCH (07:42)
[2024-04-03] MEDS: ENOXAPARIN SOD 40 MG/0.4 ML SYRINGE SC SCH (07:45)
--- NOTE | 2024-04-03 13:35 | ECG ---
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
[2024-04-03] MEDS ORDERED: DEXTROSE (50%) 50ML SYRG IV PRN (15:00)
[2024-04-03 15:32] LABS: Cholesterol 166 mg/dL (< 200); HDL Cholesterol 43 mg/dL (40-59)
--- NOTE | 2024-04-03 15:33 | DVH ---
CLINICAL HISTORY: Bilateral lower extremity swelling. COMPARISON: US BILAT LOWER DVT on DOS: 05/20/23, BLDVT on DOS: 11/08/21, BI LOWER DVT on DOS: 11/08/21 TECHNIQUE: Bilateral lower extremity venous duplex exam was performed. Grayscale, color flow, and spe ctral waveform analysis was performed. The deep veins of the lower extremity were evaluated for compr ession, phasic flow, and augmentation. Color flow and spectral waveform analysis were performed. FINDINGS: This examination demonstrates normal compression, augmentation, and phasic flow of both low er extremities. No evidence for echogenic thrombus within the common femoral, femoral, and popliteal veins. In addition, the calf veins demonstrated normal compression and color flow. IMPRESSION: There is no evidence for DVT in either lower extremity.
[2024-04-03 15:47] LABS: LDL Cholesterol 101 mg/dL (< 100); Triglycerides 193 mg/dL (< 150)
[2024-04-03 16:11] LABS: COVID19 ANTIGEN SOFIA FIA NEGATIVE (NEGATIVE); Rapid Influenza A Negative (Negative); Rapid Influenza B Negative (Negative)
--- NOTE | 2024-04-03 16:55 | DVHSR ---
APPROVED REPORT EXAM: Two-dimensional and M-mode echocardiogram with Doppler and color Doppler. Blood Pressure: 134/92 mmHg INDICATION Pulmonary congestion CHF? RISK FACTORS Height: 68, Weight: 327 DIMENSIONS LVDd4.8 (3.8-5.7cm)LA (2D) (1.9-4.0cm)Aortic Root4.0 (2.0-3.7cm) LVDs3.6 (2.5-4.0cm)LA (MM) (1.9-4.0cm)Aortic Cusp Exc1.6 (1.5-2.0cm) EF (%) 50.0 (55-70%)Rt. Atrium (1.9-4.0cm)Asc. Aorta cm Mitral Valve MitralMitral Stenosis E wave0.61m/sMV Mean GR.mmHg A wave0.95m/sMV Peak GR.mmHg E/A ratio0.62D MVAcm2 DECEL [id number] 1/2 Timems Aortic Valve Aortic ValveAortic Stenosis V10.93m/Rayna Mean GR.5mmHg V21.46m/Rayna Peak GR.8mmHg LVOT Diameter2.0 (1.8-2.4cm)Doppler AVA2.00cm2 Pulmonic Valve V21.05m/s Tricuspid Valve TR Velocity2.64m/s [id number] Other Information Technically limited study due to body habitus and patient position. Conclusion Technically difficult study. Difficult acoustic windows. Sinus rhythm. Concentric LVH with aortic root enlargement. Dilation of the ascending aorta. Valves appear to be structurally normal. EF of 60% with normal RV function Doppler is unremarkable. No pericardial effusion masses or vegetations.
--- NOTE | 2024-04-03 17:17 | DVH ---
CTA CHEST INDICATION: resp failure TECHNIQUE: Multidetector CTA of the chest was performed of the chest with 100 cc of intravenous contr ast. PULMONARY ANGIOGRAPHY PROTOCOL was utilized using a bolus-tracking technique centered on the paola n pulmonary artery. Axial, coronal and sagittal multiplanar and MIP reformats were performed. Radiation Dose Information: CT Dose: CTDI volume is 29 mGy. Dose-length product is 1131 mGy*cm The dose indicators for CT are the volume Computed Tomography (CT) Dose Index (CTDIvol) and the Dose Length Product (DLP), and are measured in units of mGy and mGy-cm, respectively. These indicators are not patient dose, but values generated from the CT scanner acquisition factors. The report includes radiation exposure data for exposures received during this examination. Comparison: None Findings: Pulmonary artery: There is no evidence of a pulmonary arterial filling defect to suggest pulmonary e mbolism. The main pulmonary artery appears prominent in size measuring 4 cm in diameter. Lungs/Pleura: There is volume loss and pleural-parenchymal scarring in the right lower lobe. There i s also curvilinear scarring versus atelectasis in the left lower lobe. There is no lung consolidation . There is no pleural effusion or pneumothorax. Heart/Vascular Structures: Heart size is in the upper limits of normal. There is no pericardial eff usion. The thoracic aorta demonstrates normal caliber. Lymph Nodes: There are small subcentimeter mediastinal lymph nodes. The esophagus appears mildly dil ated. There is no hilar or axillary lymphadenopathy. Musculoskeletal: No acute osseous abnormality. Upper abdomen: There is fatty infiltration of the liver. There is a 6.4 cm cyst in the left kidney. The remaining visualized solid intra-abdominal structures appear within normal limits. IMPRESSION: 1. There is no evidence of a pulmonary arterial filling defect to suggest pulmonary embolism. 2. There is volume loss with pleural-parenchymal scarring in the right lower lobe. There is no lung c onsolidation or pleural effusion. 3. Main pulmonary artery is prominent in size. This can be seen in the setting of pulmonary arterial hypertension. HS:Y
[2024-04-03] MEDS: BUMETANIDE 1mg/4ml VIAL (0.25mg/ml) IV SCH (17:44)
[2024-04-03] MEDS: ACCU-CHEK COMFORT CURVE STRIP VI SCH (17:45)
[2024-04-03] MEDS: InsuLIN REG 1unit/0.01ml Soln (100units/ml) SC SCH (17:58)
[2024-04-03] MEDS: POTASSIUM CHLORIDE 8 MEQ TAB PO SCH (21:02)
[2024-04-03] MEDS: INSULIN LANTUS (GLARGINE) 1 /0.01ml (100units/ml) SC SCH (21:04)
[2024-04-03] MEDS ORDERED: methylPREDNISolone SOD SUCC 40 MG/ML VL IV SCH (22:00)
--- NOTE | 2024-04-03 23:47 | DVHINCON2 ---
Date of service: Apr 03, 2024 Referring Physician Jose Chase NP Reason for Consultation Acute hypoxic respiratory failure History of Present Illness A 63-year-old man with past medical history of DM and hypertension who presented to ED on 04/02/24 with complaints of worsening shortness of breath and leg swelling over the previous month. On arrival to the emergency department the patient was found to be hypoxic with an oxygen saturation 84%, requiring supplemental O2 at 3 L nasal cannula to maintain an O2 saturation of 93%. Patient is not oxygen dependent at home. He follows with Dr. Fulton for Cardiology; however, denies diagnosis of congestive heart failure. On workup in ED, BNP was negative at 33; troponins negative at . CXR was significant for pulmonary congestion. Patient was admitted for further care and pulmonary consultation is requested for evaluation and management of acute hy poxic respiratory failure. Review of Systems: 14-point review of systems negative unless otherwise noted above. Past Medical History: DM and hypertension. Past Surgical History: None Medications: Reviewed. Allergies: No known drug allergies. Family History: Diabetes mellitus Hypertension. Arthritis Social History: Nonsmoker. No alcohol or illicit drug use. Family History: Arthritis G8 MOTHER, Age: 88 Diabetes mellitus G8 MOTHER, Age: 88 Hypertension G8 FATHER, , Age: 80 Allergies: Coded Allergies: NO KNOWN ALLERGIES (Unverified , 02/20/22) Home Meds Active Scripts Losartan Potassium (Losartan Potassium) 50 Mg Tab, 1 TAB PO DAILY, #90 TAB 1 Refill Prov:YUN REAVES MD 04/05/24 Furosemide (Furosemide) 40 Mg Tab, 1.5 TAB PO DAILY, #90 TAB 3 Refills Take one and half tablet (60 mg) twice a day for next five days. Then continue one and half tablet (60 mg) daily. Prov:YUN REAVES MD 04/05/24 Insulin Glargine-Yfgn (Insulin Glargine) 100 Unit/Ml Inj, 50 UNIT SC HS, #10 INJ Prov:YUN REAVES MD 04/05/24 Carvedilol (Coreg) 3.125 Mg Tab, 1 TAB PO BID, #90 TAB 1 Refill Prov:YUN REAVES MD 05/23/23 Reported Medications Semaglutide (Ozempic) 2 Mg/3 Ml Inj, 2 MG SC QWEEKLY, INJ 05/21/23 Empagliflozin (Jardiance) 25 Mg Tab, 25 MG PO DAILY, TAB 05/21/23 Finerenone (Kerendia) 10 Mg Tab, 10 MG PO DAILY, TAB 05/21/23 Aspirin (Aspirin 81 Low Dose) 81 Mg Chw, 81 MG PO DAILY, TAB.CHEW 05/21/23 Atorvastatin Calcium (ATORVASTATIN CALCIUM) 20 Mg Tab, 20 MG PO DAILY, TAB 11/09/21 Cholecalciferol (VITAMIN D3) 2,000 Unit Tab, 1 TAB PO DAILY, #30 TAB 5 Refills 11/08/21 Insulin Lispro (Human) (Humalog) 100 Unit/Ml Inj, SC, INJ 11/08/21 Discontinued Reported Medications Furosemide (Furosemide) 20 Mg Tab, 1 TAB PO TID 05/22/23 Losartan Potassium (Losartan Potassium) 100 Mg Tab, 100 MG PO DAILY for 30 Days, MG 05/21/23 Glimepiride (Glimepiride) 4 Mg Tab, 1 TAB PO DAILY, #30 TAB 5 Refills 05/21/23 Hydroxyzine Hcl (Hydroxyzine Hcl) 25 Mg Tab, 1 TAB PO BID 05/22/23 Potassium Chloride (Potassium Chloride ER) 20 Meq Tab, 1 TAB PO DAILY 05/22/23 Current Medications Current Medications Medications (Trade) Dose Ordered Sig/Ana M Route PRN Reason Start Time Stop Time Status Last Admin Enoxaparin Sodium (Lovenox) 40 mg DAILY SC 04/03/24 10:00 04/03/24 07:45 Albuterol (Ventolin Medneb) 2.5 mg Q6HR NEB 04/03/24 00:00 04/03/24 19:18 Ipratropium [place] (Atrovent Medneb) 0.5 mg Q6HR NEB 04/03/24 00:00 04/03/24 19:18 Aspirin (Ecotrin Enteric Coated Tablet) 81 mg DAILY PO 04/03/24 10:00 04/03/24 07:42 Atorvastatin Calcium (Lipitor) 20 mg DAILY PO 04/03/24 10:00 04/03/24 07:41 Budesonide (Pulmicort) 0.5 mg BID NEB 04/03/24 22:00 Methylprednisolone Sodium Succinate (Solu Medrol) 20 mg BID IV 04/03/24 22:00 04/03/24 14:58 DC Famotidine (Pepcid Tablet) 20 mg DAILY PO 04/04/24 10:00 Diagnostic Test (Pha) (Accu-Chek Comfort Curve T) 1 strip Q6HR 04/03/24 18:00 04/03/24 17:45 Insulin Human Regular (InsuLIN R) Q6HR SC 04/03/24 18:00 04/03/24 17:58 Dextrose 50 ml UD PRN IV Blood Sugar LESS THAN 60 04/03/24 15:00 Insulin Glargine (Lantus) 35 units HS SC 04/03/24 22:00 04/03/24 21:04 Bumetanide (Bumex Injection) 1 mg BIDD IV 04/03/24 18:00 04/03/24 17:44 Potassium Chloride (Klor-Con Tablet) 8 meq BID PO 04/03/24 22:00 04/03/24 21:02 Vital Signs Vital Signs Date Time Temp Pulse Resp B/P (MAP) Pulse Ox O2 Delivery O2 Flow Rate FiO2 04/03/24 21:00 97.6 87 20 128/79 (95) 95 97.6 04/03/24 19:38 Oxymizer 8 N/A Physical Exam Gen.: Patient lying in bed in no apparent distress. On supplemental oxygen. Head: Normocephalic, atraumatic. Eyes: EOMI/PERRLA. Ears: Normal hearing. Normal anatomy. Neck/trachea: Trachea midline, supple. Nose: Normal external anatomy. Mouth: Moist mucous membranes. Chest: Decreased air entry bilaterally. No wheezing or rhonchi. Cardiovascular: Positive S1, positive S2. Regular rate and rhythm. Abdomen: Positive bowel sounds in all 4 quadrants. Soft, non-tender, non- distended. : Deferred. Rectal: Deferred. Skin: Warm, dry. Intact. Extremities: 2+ radial pulses bilaterally. No lower extremity edema. Neuro: Awake, alert, oriented x3. No gross motor or sensory deficits. Cranial nerves II through XII intact. Gait not assessed. Labs/Diagnostic Data Labs Test 04/03/24 20:50 04/03/24 14:45 04/03/24 05:41 04/03/24 00:25 Range/Units POC Glucose 319 H 70-106 mg/dl Influenza Type A Antigen Negative Negative Influenza Type B Antigen Negative Negative SARS-CoV-2 Antigen (Rapid) Negative NEGATIVE White Blood Count 7.4 4.4-10.8 10^3/uL Red Blood Count 5.64 4.5-5.90 10^6/uL Hemoglobin 18.2 H 13.5-17.5 g/dL Hematocrit 53.7 H 41.0-53.0 % Mean Corpuscular Volume 95.3 80.0-100.0 fL Mean Corpuscular Hemoglobin 32.2 H 28.0-32.0 pg Mean Corpuscular Hemoglobin Concent 33.8 32.0-36.0 g/dL Red Cell Distribution Width 15.6 H 11.8-14.3 % Platelet Count 127 L 140-450 10^3/uL Mean Platelet Volume 10.3 6.9-10.8 fL Neutrophils (%) (Auto) 62.4 37.0-80.0 % Lymphocytes (%) (Auto) 25.5 10.0-50.0 % Monocytes (%) (Auto) 10.2 0.0-12.0 % Eosinophils (%) (Auto) 1.3 0.0-7.0 % Basophils (%) (Auto) 0.6 0.0-2.0 % Neutrophils # (Auto) 4.6 1.6-8.6 10 ^3/uL Lymphocytes # (Auto) 1.9 0.4-5.4 10 ^3/uL Monocytes # (Auto) 0.8 0-1.3 10 ^3/uL Eosinophils # (Auto) 0.1 0-0.8 10 ^3/uL Basophils # (Auto) 0 0-0.2 10 ^3/uL Nucleated Red Blood Cells 0.2 % Sodium Level 134 L 136-145 mmol/L Potassium Level 4.0 3.5-5.1 mmol/L Chloride Level 98 98-107 mmol/L Carbon Dioxide Level 30 20-31 mmol/L Anion Gap 6 5-15 Blood Urea Nitrogen 14 9-23 mg/dL Creatinine 0.94 0.700-1.30 mg/dL Glomerular Filtration Rate Calc 91 >90 mL/min BUN/Creatinine Ratio 14.9 10.0-20.0 Serum Glucose 256 H 74-106 mg/dL Hemoglobin A1c 12.0 H <5.7 % A1C Calcium Level 9.9 8.7-10.4 mg/dL Triglycerides Level 193 H < 150 mg/dL Cholesterol Level 166 < 200 mg/dL LDL Cholesterol 101 H < 100 mg/dL HDL Cholesterol 43 40-59 mg/dL Urine Color Light-yellow Yellow Urine Clarity Clear Clear Urine pH 5.0 5.0-9.0 Urine Specific [place] 1.013 1.001-1.035 Urine Protein Negative Negative Urine Ketones Negative Negative Urine Blood Negative Negative /uL Urine Nitrite Negative Negative Urine Bilirubin Negative Negative Urine Urobilinogen Normal Negative mg/dL Urine Leukocyte Esterase Negative Negative /uL Urine RBC None seen 0 - 3 /hpf Urine Microscopic WBC 0-3 /HPF Urine Squamous Epithelial Cells None seen <5 /hpf Urine Bacteria None seen None Seen /hpf Urine Mucus Few None Seen Urine Glucose 2+ H Normal mg/dL Test 04/02/24 19:17 04/02/24 16:16 Range/Units Troponin I High Sensitivity 15 </=54 ng/L D-Dimer, Quantitative 0.22 0.0-0.49 mg/L FEU B-Type Natriuretic Peptide 33.90 0-100 pg/mL Assessment Impression: Acute hypoxic respiratory failure Dependence on supplemental oxygen Acute vs chronic congestive heart failure (05/20/23 estimated LVEF 45%) DM type II Morbid obesity, BMI of 49.6 Plan: Supplemental oxygen 8 LPM Oxymizer Titrate to keep O2 sats above 92%. Taper O2 as tolerated. CTA reveals no e/o pulmonary embolism. RLL scarring, enlarged pulmonary trunk. U/S venous Doppler of bilateral lower extremities showed no e/o deep venous thrombosis Accu-Cheks, ISS. Continue bronchodilators/Pulmicort IV steroids Diurese to euvolemia w/ Bumex Monitor renal function. Monitor electrolytes. Supplement as necessary. Potassium supplementation Monitor ins and outs. Diet and lifestyle modifications for weight reduction Morbid obesity - complicates all care GI prophylaxis w/ Pepcid DVT prophylaxis. Prognosis: Poor given patient's multiple co-morbidities. Rest of plan per hospitalist and other consultants. Thank you, PEPE Chase, for allowing me to participate in this patient's care. Further recommendations will depend on the patient's clinical course. Please do not hesitate to contact me if you have any questions or concerns. This medical document was created using an electronic medical record system with [employer] dictation system. Although these documentations are being carefully reviewed, there may still be some phonetic and typographical changes. The errors are purely typographical, due to imperfection on the software program, and do not reflect any compromise in the patient's medical care. Plan discussed with: Patient, Other (CRISELDA Knutson/PEPE Chase/) NELIDA MARIE MD Apr 03, 2024 23:47
[2024-04-04] VITALS (18 sets, daily range): BP systolic 122–144; BP diastolic 73–93; PULSE 71–91; RESP 17–20; TEMP 97.1–97.9; O2SAT 90–100
[2024-04-04] MEDS: BUDESONIDE (INHALATION) 0.5 MG/2 ML NEB NEB SCH (00:01)
[2024-04-04 06:49] LABS: Basophils # (auto) 0 10 ^3/uL (0-0.2); Eosinophils # (auto) 0.1 10 ^3/uL (0-0.8); Hematocrit 53.2 % (41.0-53.0); Hemoglobin 17.8 g/dL (13.5-17.5); Lymphocytes # (auto) 1.4 10 ^3/uL (0.4-5.4); Mean Corpuscular Volume 95.2 fL (80.0-100.0); Monocytes # (auto) 0.8 10 ^3/uL (0-1.3); Platelet Count (auto) 132 10^3/uL (140-450); Red Blood Cells 5.59 10^6/uL (4.5-5.90)
[2024-04-04 06:51] LABS: Basophils % (auto) 0.3 % (0.0-2.0); Lymphocytes % (auto) 19.9 % (10.0-50.0); Mean Corpuscular Hemoglobin 31.8 pg (28.0-32.0); Mean Corpuscular Hgb Conc. 33.4 g/dL (32.0-36.0); Monocytes % (auto) 10.8 % (0.0-12.0); Neutrophils # (auto) 4.9 10 ^3/uL (1.6-8.6); Nucleated Red Blood Cells % 0.4 %; Red Cell Distribution Width 15.1 % (11.8-14.3); White Blood Cell 7.2 10^3/uL (4.4-10.8)
[2024-04-04 06:58] LABS: Anion Gap 6 (5-15); Calcium 10.1 mg/dL (8.7-10.4); Potassium 3.9 mmol/L (3.5-5.1)
[2024-04-04 07:01] LABS: Carbon Dioxide 31 mmol/L (20-31); Chloride 97 mmol/L (98-107); Sodium 134 mmol/L (136-145)
[2024-04-04 07:04] LABS: BUN/Creatinine Ratio 14.3 (10.0-20.0); Blood Urea Nitrogen 12 mg/dL (9-23)
[2024-04-04 07:28] LABS: Glucose 234 mg/dL (74-106)
[2024-04-04] MEDS: FAMOTIDINE 20 MG TAB PO SCH (10:27)
[2024-04-04] MEDS: IOHEXOL 350 MG/ML 100ML IJ ONE (11:28)
--- NOTE | 2024-04-04 15:30 | DVHPN2 ---
Progress Note - Dictate Date Seen: Apr 04, 2024 Medical Necessity Reason Pt with a Central, PICC or Fol: No Subjective Says he feels better. Complaining of dry nose with the oxygen. vital signs Vital Sign Date Time Temp Pulse Resp B/P (MAP) Pulse Ox O2 Delivery O2 Flow Rate FiO2 04/04/24 11:37 76 18 97 04/04/24 11:31 Mask 10.0 04/04/24 11:31 99 04/04/24 09:00 97.8 140/93 (109) 97.8 Total Intake and Output 04/03/24 04/03/24 04/04/24 15:00 23:00 07:00 Intake Total 820 ml Output Total 600 ml Balance 220 ml medications Current Medications Medications Dose Ordered Sig/Ana M Route Start Time Stop Time Status Last Admin Dose Admin Docusate Sodium 100 mg BIDPRN PRN PO 04/02/24 20:45 Acetaminophen 650 mg Q6HP PRN PO 04/02/24 20:45 Acetaminophen/ Hydrocodone Bitart 1 tab Q6HPRN PRN PO 04/02/24 20:45 Ondansetron HCl 4 mg Q4HP PRN IV 04/02/24 20:45 Morphine Sulfate 2 mg Q4HPRN PRN IV 04/02/24 20:45 Enoxaparin Sodium 40 mg DAILY SC 04/03/24 10:00 04/04/24 10:28 40 MG Nitroglycerin 0.4 mg Q5MINP PRN SL 04/02/24 20:45 Morphine Sulfate 2 mg Q30M PRN IV 04/02/24 20:45 Albuterol 2.5 mg Q6HR NEB 04/03/24 00:00 04/04/24 11:31 2.5 MG Ipratropium [place] 0.5 mg Q6HR NEB 04/03/24 00:00 04/04/24 11:31 0.5 MG Aspirin 81 mg DAILY PO 04/03/24 10:00 04/04/24 10:28 81 MG Atorvastatin Calcium 20 mg DAILY PO 04/03/24 10:00 04/04/24 10:28 20 MG Hydralazine HCl 10 mg Q4HPRN PRN IV 04/02/24 20:45 Budesonide 0.5 mg BID NEB 04/03/24 22:00 04/04/24 07:08 0.5 MG Famotidine 20 mg DAILY PO 04/04/24 10:00 04/04/24 10:27 20 MG Diagnostic Test (Pha) 1 strip Q6HR 04/03/24 18:00 04/04/24 12:15 1 STRIP Insulin Human Regular Q6HR SC 04/03/24 18:00 04/04/24 12:50 6 UNITS Dextrose 50 ml UD PRN IV 04/03/24 15:00 Potassium Chloride 8 meq BID PO 04/03/24 22:00 04/04/24 10:27 8 MEQ Insulin Glargine 45 units HS SC 04/04/24 22:00 Bumetanide 2 mg BIDD IV 04/04/24 18:00 objective Sitting at the edge of bed comfortable. HEENT neck supple no JVD. Heart regular rate and rhythm S1 and S2. Lungs without rales wheezes. Abdomen obese soft positive bowel sounds. Extremities improving edema. laboratory and microbiology Laboratory Tests 04/04/24 06:28 Test 04/04/24 06:28 Range/Units Serum Glucose 234 H 74-106 mg/dL Assessment/Plan CT angiogram of the chest as well as ultrasound of the legs unremarkable. I will increase his Bumex dose for more diuresis. Patient counseled and educated at length regarding diet exercise and weight loss. Continue rest of supportive care and treatment as he is on. Titrate the oxygen to keep saturations around 90%. Otherwise further clinical management per clinical course. We will also adjust his insulin given his blood sugars are poorly controlled. I also discussed with the patient regarding his A1c levels and cholesterol levels. Problems(with codes): (1) Acute on chronic diastolic heart failure (2) Hypertension (3) Sleep apnea with use of continuous positive airway pressure (CPAP) (4) Uncontrolled diabetes mellitus Plan discussed with: Patient, Other YUN REAVES MD Apr 04, 2024 15:30
[2024-04-04] MEDS: BUMETANIDE 1mg/4ml VIAL (0.25mg/ml) IV SCH (17:30)
[2024-04-04] MEDS: INSULIN LANTUS (GLARGINE) 1 /0.01ml (100units/ml) SC SCH (21:11)
--- NOTE | 2024-04-04 22:46 | DVHPN2 ---
Progress Note - Dictate Date Seen: Apr 04, 2024 Medical Necessity Reason Pt with a Central, PICC or Fol: No Subjective Patient seen and examined at bedside. Remains on supplemental oxygen Overnight events reviewed. vital signs Vital Sign Date Time Temp Pulse Resp B/P (MAP) Pulse Ox O2 Delivery O2 Flow Rate FiO2 04/04/24 21:00 97.9 74 18 122/82 (95) 94 97.9 04/04/24 20:06 Simple Mask* 6 50 Total Intake and Output 04/03/24 04/03/24 04/04/24 15:00 23:00 07:00 Intake Total 820 ml Output Total 600 ml Balance 220 ml medications Current Medications Medications Dose Ordered Sig/Ana M Route Start Time Stop Time Status Last Admin Dose Admin Docusate Sodium 100 mg BIDPRN PRN PO 04/02/24 20:45 Acetaminophen 650 mg Q6HP PRN PO 04/02/24 20:45 Acetaminophen/ Hydrocodone Bitart 1 tab Q6HPRN PRN PO 04/02/24 20:45 Ondansetron HCl 4 mg Q4HP PRN IV 04/02/24 20:45 Morphine Sulfate 2 mg Q4HPRN PRN IV 04/02/24 20:45 Enoxaparin Sodium 40 mg DAILY SC 04/03/24 10:00 04/04/24 10:28 40 MG Nitroglycerin 0.4 mg Q5MINP PRN SL 04/02/24 20:45 Morphine Sulfate 2 mg Q30M PRN IV 04/02/24 20:45 Albuterol 2.5 mg Q6HR NEB 04/03/24 00:00 04/04/24 18:02 2.5 MG Ipratropium [place] 0.5 mg Q6HR NEB 04/03/24 00:00 04/04/24 18:02 0.5 MG Aspirin 81 mg DAILY PO 04/03/24 10:00 04/04/24 10:28 81 MG Atorvastatin Calcium 20 mg DAILY PO 04/03/24 10:00 04/04/24 10:28 20 MG Hydralazine HCl 10 mg Q4HPRN PRN IV 04/02/24 20:45 Budesonide 0.5 mg BID NEB 04/03/24 22:00 04/04/24 18:02 0.5 MG Famotidine 20 mg DAILY PO 04/04/24 10:00 04/04/24 10:27 20 MG Diagnostic Test (Pha) 1 strip Q6HR 04/03/24 18:00 04/04/24 17:31 1 STRIP Insulin Human Regular Q6HR SC 04/03/24 18:00 04/04/24 17:38 6 UNITS Dextrose 50 ml UD PRN IV 04/03/24 15:00 Potassium Chloride 8 meq BID PO 04/03/24 22:00 04/04/24 21:10 8 MEQ Insulin Glargine 45 units HS SC 04/04/24 22:00 04/04/24 21:11 45 UNITS Bumetanide 2 mg BIDD IV 04/04/24 18:00 04/04/24 17:30 2 MG objective Gen.: Patient lying in bed in no apparent distress. On supplemental oxygen. Head: Normocephalic, atraumatic. Eyes: EOMI/PERRLA. Ears: Normal hearing. Normal anatomy. Neck/trachea: Trachea midline, supple. Nose: Normal external anatomy. Mouth: Moist mucous membranes. Chest: Decreased air entry bilaterally. No wheezing or rhonchi. Cardiovascular: Positive S1, positive S2. Regular rate and rhythm. Abdomen: Positive bowel sounds in all 4 quadrants. Soft, non-tender, non- distended. : Deferred. Rectal: Deferred. Skin: Warm, dry. Intact. Extremities: 2+ radial pulses bilaterally. No lower extremity edema. Neuro: Awake, alert, oriented x3. No gross motor or sensory deficits. Cranial nerves II through XII intact. Gait not assessed. laboratory and microbiology Laboratory Tests 04/04/24 06:28 Test 04/04/24 06:28 Range/Units Serum Glucose 234 H 74-106 mg/dL Assessment/Plan Impression: Acute hypoxic respiratory failure Dependence on supplemental oxygen Acute vs chronic congestive heart failure (05/20/23 estimated LVEF 45%) DM type II Morbid obesity Events: Remains on supplemental oxygen, 7 LPM Simple mask (Tapered from 11 LPM simple mask) Continue to taper down as tolerated Improved O2 requirements BiPAP PRN. Epistaxis from dry nares. Continue bronchodilators Diurese as tolerated w/ Bumex Monitor renal function. Monitor electrolytes. Supplement as necessary. Labs and imaging reviewed. Rest of plan as noted below. Plan: Supplemental oxygen 8 LPM Oxymizer Titrate to keep O2 sats above 92%. Taper O2 as tolerated. CTA reveals no e/o pulmonary embolism. RLL scarring, enlarged pulmonary trunk. U/S venous Doppler of bilateral lower extremities showed no e/o deep venous thrombosis Accu-Cheks, ISS. Continue bronchodilators/Pulmicort IV steroids Diurese to euvolemia w/ Bumex Monitor renal function. Monitor electrolytes. Supplement as necessary. Potassium supplementation Monitor ins and outs. Diet and lifestyle modifications for weight reduction Morbid obesity - complicates all care GI prophylaxis w/ Pepcid DVT prophylaxis. Prognosis: Poor given patient's multiple co-morbidities. Rest of plan per hospitalist and other consultants. Thank you, PEPE Chase, for allowing me to participate in this patient's care. Further recommendations will depend on the patient's clinical course. Please do not hesitate to contact me if you have any questions or concerns. This medical document was created using an electronic medical record system with [employer] computerized dictation system. Although these documentations are being carefully reviewed, there may still be some phonetic and typographical changes. The errors are purely typographical, due to imperfection on the software program, and do not reflect any compromise in the patient's medical care. Plan discussed with: Patient, Other (CRISELDA Knutson) NELIDA MARIE MD Apr 04, 2024 22:45
[2024-04-05] VITALS (15 sets, daily range): BP systolic 125–145; BP diastolic 80–89; PULSE 74–94; RESP 16–20; TEMP 97.5–98.5; O2SAT 91–100
[2024-04-05 06:39] LABS: Basophils # (auto) 0 10 ^3/uL (0-0.2); Eosinophils # (auto) 0.1 10 ^3/uL (0-0.8); Mean Corpuscular Hgb Conc. 33.1 g/dL (32.0-36.0); Neutrophils % (auto) 69.3 % (37.0-80.0)
[2024-04-05 06:43] LABS: Basophils % (auto) 0.3 % (0.0-2.0); Eosinophils % (auto) 1.2 % (0.0-7.0); Hematocrit 53.7 % (41.0-53.0); Hemoglobin 17.8 g/dL (13.5-17.5); Lymphocytes # (auto) 1.5 10 ^3/uL (0.4-5.4); Mean Corpuscular Hemoglobin 31.6 pg (28.0-32.0); Mean Corpuscular Volume 95.5 fL (80.0-100.0); Monocytes # (auto) 0.7 10 ^3/uL (0-1.3); Monocytes % (auto) 9.2 % (0.0-12.0); Neutrophils # (auto) 5.1 10 ^3/uL (1.6-8.6); Nucleated Red Blood Cells % 0.3 %; Platelet Count (auto) 138 10^3/uL (140-450); Red Blood Cells 5.62 10^6/uL (4.5-5.90); Red Cell Distribution Width 15.2 % (11.8-14.3); White Blood Cell 7.4 10^3/uL (4.4-10.8)
[2024-04-05 06:52] LABS: Potassium 3.9 mmol/L (3.5-5.1)
[2024-04-05 06:53] LABS: Anion Gap 9 (5-15); Carbon Dioxide 28 mmol/L (20-31)
[2024-04-05 06:54] LABS: Calcium 9.8 mg/dL (8.7-10.4)
[2024-04-05 06:58] LABS: BUN/Creatinine Ratio 13.5 (10.0-20.0); Blood Urea Nitrogen 13 mg/dL (9-23)
[2024-04-05 07:06] LABS: Chloride 98 mmol/L (98-107); Glucose 224 mg/dL (74-106); Sodium 135 mmol/L (136-145)
[2024-04-05] MEDS ORDERED: FURO40TA4 PO (11:41)
[2024-04-05] MEDS ORDERED: LOSA-534 PO (11:41)
[2024-04-05] MEDS ORDERED: INSU100I70 SC (11:41)
--- NOTE | 2024-04-05 11:44 | DVHDS2 ---
Discharge Summary Date of Admission Apr 02, 2024 at 20:45 Date of Discharge: Apr 05, 2024 Admitting Diagnosis Shortness of breath Labs/Diagnostic Data: Laboratory Results Test 04/05/24 10:56 04/05/24 05:30 04/03/24 14:45 04/03/24 05:41 POC Glucose 218 mg/dl (70-106) White Blood Count 7.4 10^3/uL (4.4-10.8) Red Blood Count 5.62 10^6/uL (4.5-5.90) Hemoglobin 17.8 g/dL (13.5-17.5) Hematocrit 53.7 % (41.0-53.0) Mean Corpuscular Volume 95.5 fL (80.0-100.0) Mean Corpuscular Hemoglobin 31.6 pg (28.0-32.0) Mean Corpuscular Hemoglobin Concent 33.1 g/dL (32.0-36.0) Red Cell Distribution Width 15.2 % (11.8-14.3) Platelet Count 138 10^3/uL (140-450) Mean Platelet Volume 10.6 fL (6.9-10.8) Neutrophils (%) (Auto) 69.3 % (37.0-80.0) Lymphocytes (%) (Auto) 20.0 % (10.0-50.0) Monocytes (%) (Auto) 9.2 % (0.0-12.0) Eosinophils (%) (Auto) 1.2 % (0.0-7.0) Basophils (%) (Auto) 0.3 % (0.0-2.0) Neutrophils # (Auto) 5.1 10 ^3/uL (1.6-8.6) Lymphocytes # (Auto) 1.5 10 ^3/uL (0.4-5.4) Monocytes # (Auto) 0.7 10 ^3/uL (0-1.3) Eosinophils # (Auto) 0.1 10 ^3/uL (0-0.8) Basophils # (Auto) 0 10 ^3/uL (0-0.2) Nucleated Red Blood Cells 0.3 % Sodium Level 135 mmol/L (136-145) Potassium Level 3.9 mmol/L (3.5-5.1) Chloride Level 98 mmol/L (98-107) Carbon Dioxide Level 28 mmol/L (20-31) Anion Gap 9 (5-15) Blood Urea Nitrogen 13 mg/dL (9-23) Creatinine 0.96 mg/dL (0.700-1.30) Glomerular Filtration Rate Calc 88 mL/min (>90) BUN/Creatinine Ratio 13.5 (10.0-20.0) Serum Glucose 224 mg/dL (74-106) Calcium Level 9.8 mg/dL (8.7-10.4) Influenza Type A Antigen Negative (Negative) Influenza Type B Antigen Negative (Negative) SARS-CoV-2 Antigen (Rapid) Negative (NEGATIVE) Hemoglobin A1c 12.0 % A1C (<5.7) Triglycerides Level 193 mg/dL (< 150) Cholesterol Level 166 mg/dL (< 200) LDL Cholesterol 101 mg/dL (< 100) HDL Cholesterol 43 mg/dL (40-59) Test 04/03/24 00:25 04/02/24 19:17 04/02/24 16:16 Urine Color Light-yellow (Yellow) Urine Clarity Clear (Clear) Urine pH 5.0 (5.0-9.0) Urine Specific [place] 1.013 (1.001-1.035) Urine Protein Negative (Negative) Urine Ketones Negative (Negative) Urine Blood Negative /uL (Negative) Urine Nitrite Negative (Negative) Urine Bilirubin Negative (Negative) Urine Urobilinogen Normal mg/dL (Negative) Urine Leukocyte Esterase Negative /uL (Negative) Urine RBC None seen /hpf (0 - 3) Urine Microscopic WBC /HPF (0-3) Urine Squamous Epithelial Cells None seen /hpf (<5) Urine Bacteria None seen /hpf (None Seen) Urine Mucus Few (None Seen) Urine Glucose 2+ mg/dL (Normal) Troponin I High Sensitivity 15 ng/L (</=54) D-Dimer, Quantitative 0.22 mg/L FEU (0.0-0.49) B-Type Natriuretic Peptide 33.90 pg/mL (0-100) Other Laboratory Tests 04/05/24 05:30 Brief Hx & Hospital Course: 63-year-old male with past medical history DM, hypertension presents with complaints of worsening shortness of breath and leg swelling over the previous month. On arrival to the emergency department the patient was found to be hypoxic with an oxygen saturation 84%, requiring supplemental O2 at 3 L nasal cannula to maintain an O2 saturation of 93%. Patient he is not oxygen dependent at home. Patient states that he does follow with Dr. Fulton for Cardiology. However denies any significant diagnosis of congestive heart failure. During the Emergency department evaluation BNP was negative at 33; troponins negative at . CXR was significant for pulmonary congestion. At this time patient denies any fevers, chills, chest pain, nausea, vomiting, diaphoresis, palpitations. 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 Patient counseled and educated at length regarding diet exercise and weight loss given his obesity with a diastolic heart failure. Patient received IV diuretics. Patient received breathing treatments. Patient advised to see pulmonology outpatient for sleep studies and CPAP as appropriate. Patient counseled regarding heart failure and advised oral fluid restriction at home. He is otherwise clinically feeling better. Rest of his workup while in the hospital remained normal. Patient advised to be compliant with his diuretics and outpatient follow up as mentioned. Patient verbalized understanding of this, verbalized understanding his hospital diagnosis, treatment he received, discharge medications, discharge instructions and follow-up plan of care. Operations or Procedures 2D echocardiogram Conclusion Technically difficult study. Difficult acoustic windows. Sinus rhythm. Concentric LVH with aortic root enlargement. Dilation of the ascending aorta. Valves appear to be structurally normal. EF of 60% with normal RV function Doppler is unremarkable. No pericardial effusion masses or vegetations. SIGNED BY: BRIGETTE FULTON Sr., MD SIGNED DATE/TIME: 04/03/24 1180 Condition at Discharge: Stable Final Diagnosis/Problems List Acute on chronic congestive heart failure with diastolic dysfunction, sleep apnea, morbid obesity Discharge Disposition: Home Discharge Instruct/Medications Diet: Consistent carbohydrate, Cardiac 2g Na,low cholest Diet comment: Strict oral fluid restriction to one and half to 2 L per day. Activity: No Restrictions, As Tolerated Follow Up/Referral: Primary care physician next week for heart failure management and obesity as well as diabetic management. Follow up with your lung doctor for sleep apnea. Medications: As prescribed and home medications per discharge med list. New Medications: Furosemide (Furosemide) 40 Mg Tab 1.5 TAB PO DAILY, #90 TAB 3 Refills Take one and half tablet (60 mg) twice a day for next five days. Then continue one and half tablet (60 mg) daily. Losartan Potassium (Losartan Potassium) 50 Mg Tab 1 TAB PO DAILY, #90 TAB 1 Refill Changed Medications: Insulin Glargine-Yfgn (Insulin Glargine) 100 Unit/Ml Inj 50 UNIT SC HS, #10 INJ (Changed from: 35 UNIT) Continued Medications: Aspirin (Aspirin 81 Low Dose) 81 Mg Chw 81 MG PO DAILY, TAB.CHEW Atorvastatin Calcium (Atorvastatin Calcium) 20 Mg Tab 20 MG PO DAILY, TAB Carvedilol (Coreg) 3.125 Mg Tab 1 TAB PO BID, #90 TAB 1 Refill Cholecalciferol (Vitamin D3) 2,000 Unit Tab 1 TAB PO DAILY, #30 TAB 5 Refills Empagliflozin (Jardiance) 25 Mg Tab 25 MG PO DAILY, TAB Finerenone (Kerendia) 10 Mg Tab 10 MG PO DAILY, TAB Insulin Lispro (Human) (Humalog) 100 Unit/Ml Inj Unknown Dose SC, INJ Semaglutide (Ozempic) 2 Mg/3 Ml Inj 2 MG SC QWEEKLY, INJ Discontinued Medications: Furosemide (Furosemide) 20 Mg Tab 1 TAB PO TID Glimepiride (Glimepiride) 4 Mg Tab 1 TAB PO DAILY, #30 TAB 5 Refills Losartan Potassium (Losartan Potassium) 100 Mg Tab 100 MG PO DAILY for 30 Days, MG Discharge Statement: "Patient was advised to return to the ER or call 911 if any headaches, dizziness, shortness of breath, chest pain, abdominal pain, bleeding, fevers, or worsening of medical condition. Patient was counseled about treatment plan, medications, possible side effects, patientverbalized understanding. All questions were answered to the best of my ability. This discharge took greater then 30 minutes in planning, reviewing documentation, counseling the patient, and discussing with other team members." ASSESSMENT ASSESSMENT Assessment Acute on chronic congestive heart failure with diastolic dysfunction, sleep apnea, morbid obesity YUN REAVES MD Apr 05, 2024 11:44
[2024-04-05] MEDS: INFLUENZA TRIVALENT 2024-2025 0.5 ML INJ IM ONE (18:23)
--- NOTE | 2024-04-05 23:25 | DVHPN2 ---
Progress Note - Dictate Date Seen: Apr 05, 2024 Medical Necessity Reason Pt with a Central, PICC or Fol: No Subjective Patient seen and examined at bedside. Tapered off supplemental oxygen, on room air. Overnight events reviewed. vital signs Vital Sign Date Time Temp Pulse Resp B/P (MAP) Pulse Ox O2 Delivery O2 Flow Rate FiO2 04/05/24 18:12 148/81 04/05/24 16:46 97.5 81 18 91 97.5 04/05/24 11:29 Room Air* 0 21 Total Intake and Output 04/04/24 04/04/24 04/05/24 15:00 23:00 07:00 Intake Total 800 ml 800 ml Output Total 600 ml Balance 200 ml 800 ml objective Gen.: Patient lying in bed in no apparent distress. On room air Head: Normocephalic, atraumatic. Eyes: EOMI/PERRLA. Ears: Normal hearing. Normal anatomy. Neck/trachea: Trachea midline, supple. Nose: Normal external anatomy. Mouth: Moist mucous membranes. Chest: Decreased air entry bilaterally. No wheezing or rhonchi. Cardiovascular: Positive S1, positive S2. Regular rate and rhythm. Abdomen: Positive bowel sounds in all 4 quadrants. Soft, non-tender, non- distended. : Deferred. Rectal: Deferred. Skin: Warm, dry. Intact. Extremities: 2+ radial pulses bilaterally. No lower extremity edema. Neuro: Awake, alert, oriented x3. No gross motor or sensory deficits. Cranial nerves II through XII intact. Gait not assessed. laboratory and microbiology Laboratory Tests 04/05/24 05:30 Test 04/05/24 05:30 Range/Units Serum Glucose 224 H 74-106 mg/dL Assessment/Plan Impression: Acute hypoxic respiratory failure Acute vs chronic congestive heart failure (05/20/23 estimated LVEF 45%) DM type II Morbid obesity Events: Currently off supplemental oxygen On room air Improved O2 requirements Continue bronchodilators Diurese as tolerated w/ Bumex Monitor renal function. Monitor electrolytes. Supplement as necessary. Disposition per hospitalist Labs and imaging reviewed. Rest of plan as noted below. Plan: Supplemental oxygen PRN Titrate to keep O2 sats above 92%. CTA reveals no e/o pulmonary embolism. RLL scarring, enlarged pulmonary trunk. U/S venous Doppler of bilateral lower extremities showed no e/o deep venous thrombosis Accu-Cheks, ISS. Continue bronchodilators/Pulmicort Diurese to euvolemia w/ Bumex Monitor renal function. Monitor electrolytes. Supplement as necessary. Potassium supplementation Monitor ins and outs. Diet and lifestyle modifications for weight reduction Morbid obesity - complicates all care GI prophylaxis w/ Pepcid DVT prophylaxis. Prognosis: Poor given patient's multiple co-morbidities. Rest of plan per hospitalist and other consultants. Thank you, PEPE Chase, for allowing me to participate in this patient's care. Further recommendations will depend on the patient's clinical course. Please do not hesitate to contact me if you have any questions or concerns. This medical document was created using an electronic medical record system with [employer] computerized dictation system. Although these documentations are being carefully reviewed, there may still be some phonetic and typographical changes. The errors are purely typographical, due to imperfection on the software program, and do not reflect any compromise in the patient's medical care. Plan discussed with: Patient, Other (CRISELDA Del Angel) NELIDA MARIE MD Apr 05, 2024 23:25
== END 2024-04-05 19:06 | disposition home or self-care (01) | DRG 194 ==
LOC: ER 15:07 → TELE 20:45 → TELE-EAST 04-03 10:49
PROVIDERS: ADMIT Nurse Practitioner Family; ATTEND Nurse Practitioner Family
DX: I11.0 Hypertensive heart disease with heart failure (principal); J96.01 Acute respiratory failure with hypoxia; Z99.81 Dependence on supplemental oxygen; I50.33 Acute on chronic diastolic (congestive) heart failure; E11.9 Type 2 diabetes mellitus without complications; Z20.822 Contact with and (suspected) exposure to COVID-19; E66.01 Morbid (severe) obesity due to excess calories; G47.30 Sleep apnea, unspecified; R04.0 Epistaxis; Z68.42 Body mass index [BMI] 45.0-49.9, adult; Z83.3 Family history of diabetes mellitus; Z82.49 Family history of ischemic heart disease and other diseases of the circulatory system; Z79.4 Long term (current) use of insulin
CPT/HCPCS: 36415; 71045; 71275; 80048; 80061; 81001; 82962; 83036; 83880; 84484; 85025; 85379; 87426; 87804; 93005; 93306; 93970; 94640; 99291; G0378; J1815

== ENCOUNTER 2024-05-22 13:46 | Inpatient (IN) | payer MEDICAID ==
[~2024-05-22] VITALS: Ht 172.7 cm; Wt 138.0 kg
[~2024-05-22 13:46] MED LIST changes: -FURO20TA3 PO; +FURO40TA4 PO; -GLIM4TAB42 PO; -HYDR-3682 PO; +LOSA-534 PO; -LOSA-535 PO; -POTA-180 PO
[2024-05-22 14:51] LABS: Urine Bacteria None Seen /hpf (None Seen)
[2024-05-22 15:03] LABS: Urine Blood Negative /uL (Negative); Urine Clarity Clear (Clear); Urine Color Yellow (Yellow); Urine Mucus FEW (None Seen); Urine Protein, UAD TRACE (Negative); Urine Specific Gravity 1.037 (1.001-1.035); Urine Squamous Epithelial Cell None Seen /hpf (<5); Urine Urobilinogen Normal (Negative); Urine WBC < 1 /HPF (0-3)
--- NOTE | 2024-05-22 15:03 | DVH ---
EXAM: XY CHEST PORTABLE HISTORY: sob COMPARISON: XY CHEST PORTABLE on DOS: 04/02/24, XY CHEST PORTABLE on DOS: 05/20/23, XY CHEST PORTABLE o n DOS: 12/07/22, CXRP on DOS: 11/07/21, CHEST PORTABLE on DOS: 11/07/21 TECHNIQUE: Portable AP view of the chest was performed. FINDINGS: There is mild left lung base atelectasis or scarring. No other infiltrates, pneumothorax, o r pulmonary edema. The heart is borderline ot enlarged. IMPRESSION: 1. Mild left lung base atelectasis or scarring. 2. The lungs are otherwise clear.
[2024-05-22 15:22] LABS: Basophils # (auto) 0 10 ^3/uL (0-0.2); Basophils % (auto) 0.3 % (0.0-2.0); Eosinophils # (auto) 0.1 10 ^3/uL (0-0.8); Eosinophils % (auto) 0.7 % (0.0-7.0); Hemoglobin 18.9 g/dL (13.5-17.5); Red Cell Distribution Width 15.7 % (11.8-14.3)
[2024-05-22 15:25] LABS: Lymphocytes % (auto) 18.6 % (10.0-50.0); Mean Corpuscular Hemoglobin 30.3 pg (28.0-32.0); Mean Corpuscular Hgb Conc. 33.1 g/dL (32.0-36.0); Mean Corpuscular Volume 91.4 fL (80.0-100.0); Monocytes # (auto) 0.8 10 ^3/uL (0-1.3); Monocytes % (auto) 7.6 % (0.0-12.0); Neutrophils # (auto) 7.9 10 ^3/uL (1.6-8.6); Neutrophils % (auto) 72.8 % (37.0-80.0); Nucleated Red Blood Cells % 0.8 %; Platelet Count (auto) 168 10^3/uL (140-450); Red Blood Cells 6.25 10^6/uL (4.5-5.90); White Blood Cell 10.8 10^3/uL (4.4-10.8)
[2024-05-22 15:26] LABS: Hematocrit 57.2 % (41.0-53.0)
[2024-05-22 15:43] LABS: Alanine Aminotransferase 21 U/L (7-40); Albumin 4.8 g/dL (3.2-4.8); Alkaline Phosphatase 92 U/L (46-116); Anion Gap 7 (5-15); Aspartate Aminotransferase 16 U/L (13-40); BUN/Creatinine Ratio 16.7 (10.0-20.0); Blood Urea Nitrogen 13 mg/dL (9-23); Carbon Dioxide 28 mmol/L (20-31); Chloride 100 mmol/L (98-107); Glucose 100 mg/dL (74-106); Potassium 4.4 mmol/L (3.5-5.1); Total Protein 7.1 g/dL (5.7-8.2)
[2024-05-22 15:46] LABS: Sodium 135 mmol/L (136-145)
--- NOTE | 2024-05-22 16:28 | ED.PDOC ---
Back pain HPI HPI Comments 63Y M with PMHx CHF, DM, HLD, and HTN presents to ED for chief complaint sided back pain x2days. Pt states back pain is located on left mid/lower region. Additional symptoms include constipation and urinary retention. Last BM one week ago and pt states he usually has one every day. Pt denies n/v/dysuria/hematuria. Pt states he is on a fluid restriction by PCP due to CHF. Pt is also being f/u by pain management who recently prescribed Tylenol-codeine. Pt believes that his daily Lasix and the narcotic are contributing to his constipation and urinary retention. No other symptoms reported. Chief Complaint: Back Pain Time Seen by MD: 15:35 Primary Care Provider: MARÍA Reviewed Notes: Nurses Notes, Medications, Allergies Allergies: Coded Allergies: NO KNOWN ALLERGIES (Unverified , 02/20/22) Home Meds Active Scripts Losartan Potassium (Losartan Potassium) 50 Mg Tab, 1 TAB PO DAILY, #90 TAB 1 Refill Prov:YUN REAVES MD 04/05/24 Furosemide (Furosemide) 40 Mg Tab, 1.5 TAB PO DAILY, #90 TAB 3 Refills Take one and half tablet (60 mg) twice a day for next five days. Then continue one and half tablet (60 mg) daily. Prov:YUN REAVES MD 04/05/24 Insulin Glargine-Yfgn (Insulin Glargine) 100 Unit/Ml Inj, 50 UNIT SC HS, #10 INJ Prov:YUN REAVES MD 04/05/24 Carvedilol (Coreg) 3.125 Mg Tab, 1 TAB PO BID, #90 TAB 1 Refill Prov:YUN REAVES MD 05/23/23 Reported Medications Semaglutide (Ozempic) 2 Mg/3 Ml Inj, 2 MG SC QWEEKLY, INJ 05/21/23 Empagliflozin (Jardiance) 25 Mg Tab, 25 MG PO DAILY, TAB 05/21/23 Finerenone (Kerendia) 10 Mg Tab, 10 MG PO DAILY, TAB 05/21/23 Aspirin (Aspirin 81 Low Dose) 81 Mg Chw, 81 MG PO DAILY, TAB.CHEW 05/21/23 Atorvastatin Calcium (ATORVASTATIN CALCIUM) 20 Mg Tab, 20 MG PO DAILY, TAB 11/09/21 Cholecalciferol (VITAMIN D3) 2,000 Unit Tab, 1 TAB PO DAILY, #30 TAB 5 Refills 11/08/21 Insulin Lispro (Human) (Humalog) 100 Unit/Ml Inj, SC, INJ 11/08/21 Information Source: Patient Mode of Arrival: Ambulatory Timing: Days Duration: Since onset Location of Back pain: (L) Lower back Severity: Mild Prehospital treatment: None Quality: Sharp Onset: Spontaneous Circumstance: Other History of: Chronic Back Pain Modifying Factors: Nothing Associated signs and symptoms: Other Past Medical History PAST MEDICAL HISTORY: CHF, DM, High Lipids, HTN Surgical History: Denies all surgeries Family History Family History: Family hx of heart karin Social History Smoker: Non-Smoker Alcohol: Occasionally Drugs: Denies Drug Use Lives In: Home Constitutional: denies: chills, diaphoresis, fatigue, fever, malaise, sweats, weakness, others EENTM: denies: blurred vision, double vision, ear bleeding, ear discharge, ear drainage, ear pain, ear ringing, eye pain, eye redness, hearing loss, mouth pain, mouth swelling, nasal discharge, nose bleeding, nose congestion, nose pain, photophobia, tearing, throat pain, throat swelling, voice changes, others Respiratory: denies: cough, hemoptysis, orthopnea, SOB at rest, shortness of breath, SOB with excertion, stridor, wheezing, others Cardiovascular: denies: chest pain, dizzy spells, diaphoresis, Dyspnea on exertion, edema, irregular heart beat, left arm pain, lightheadedness, palpitations, PND, syncope, others Gastrointestinal: reports: constipated; denies: abdomen distended, abdominal pain, blood streaked bowels, diarrhea, dysphagia, difficulty swallowing, hematemesis, melena, nausea, poor appetite, poor fluid intake, rectal bleeding, rectal pain, vomiting, others Genitourinary: reports: others; denies: burning, dysuria, flank pain, frequency, hematuria, incontinence, penile discharge, penile sore, pain, testicle pain, testicle swelling, urgency Neurological: denies: dizziness, fainting, headache, left sided numbness, left sided weakness, numbness, paresthesia, pre-existing deficit, right sided numbness, right sided weakness, seizure, speech problems, tingling, tremors, weakness, others Musculoskeletal: reports: back pain; denies: gout, joint pain, joint swelling, muscle pain, muscle stiffness, neck pain, others Integumetry: denies: bruises, change in color, change in hair/nails, dryness, laceration, lesions, lumps, rash, wounds, others Allergic/Immunocompromised: denies: Difficulty Healing, Frequent Infections, Hives, Itching, others Hematologic/Lymphatic: denies: anemia, blood clots, easy bleeding, easy bruising, swollen glands, others Endocrine: denies: excessive hunger, excessive sweating, excessive thirst, excessive urination, flushing, intolerance to cold, intolerance to heat, unexplained weight gain, unexplained weight loss, others Psychiatric: denies: anxiety, bipolar disorder, depression, hopeless, panic disorder, schizophrenia, sleepless, suicidal, others All Other Systems: Reviewed and Negative Physical Exam General Appearance: No Apparent Distress HEENT: PERRL/EOMI Neck: Full Range of Motion, Normal Inspection Respiratory: Decreased Breath Sounds (Left base greater than right base), No Accessory Muscle Use, Normal Breath Sounds, Other (Tachypneic) Cardiovascular: No JVD, Regular Rate/Rhythm Breast Exam: Deferred Gastrointestinal: Soft, Other (Left-sided CVA tenderness) Genitalia: Deferred Pelvic: Deferred Rectal: Deferred Extremities: Leg edema, Normal range of motion, Pedal edema Neurologic: Alert (Oriented x4), Normal Affect, Normal Mood, Other (Ambulatory. No gross focal deficit.) Cerebellar Function: NOT DONE Reflexes: NOT DONE Skin: Dry, Normal Color, Warm Lymphatic: NOT DONE Was a procedure done? Was a procedure done?: No EKG EKG : Comments Sinus rhythm, rate 83, normal MI interval, QRS prolonged at 166, QTC prolonged at 513, normal axis, right bundle branch block and left posterior fascicular block, multiple PACs, inferior and lateral T inversion Back Pain Differential Dx Differential Diagnosis: Bowel Obstruction, Musculoskeletal Pain, Pyelonephritis, Urinary Obstruction, Urinary Tract Infection, Urolithiasis, Other (Constipation, pneumonia, pleural effusion, among others) X-Ray, Labs, Meds, VS Vital Signs Date Time Temp Pulse Resp B/P (MAP) Pulse Ox O2 Delivery O2 Flow Rate FiO2 05/22/24 20:04 98.5 85 14 126/72 (90) 94 98.5 05/22/24 20:00 94 Nasal Cannula* 3 32 05/22/24 16:14 98.4 87 16 139/89 (106) 94 98.4 05/22/24 16:14 87 18 94 Nasal Cannula 2.0 05/22/24 14:23 83 05/22/24 14:00 97.9 75 28 137/83 (101) 92 97.9 Lab Test 05/22/24 15:55 05/22/24 14:50 05/22/24 14:17 Range/Units Troponin I High Sensitivity 5 5 </=54 ng/L White Blood Count 10.8 4.4-10.8 10^3/uL Red Blood Count 6.25 H 4.5-5.90 10^6/uL Hemoglobin 18.9 H 13.5-17.5 g/dL Hematocrit 57.2 H 41.0-53.0 % Mean Corpuscular Volume 91.4 80.0-100.0 fL Mean Corpuscular Hemoglobin 30.3 28.0-32.0 pg Mean Corpuscular Hemoglobin Concent 33.1 32.0-36.0 g/dL Red Cell Distribution Width 15.7 H 11.8-14.3 % Platelet Count 168 140-450 10^3/uL Mean Platelet Volume 9.8 6.9-10.8 fL Neutrophils (%) (Auto) 72.8 37.0-80.0 % Lymphocytes (%) (Auto) 18.6 10.0-50.0 % Monocytes (%) (Auto) 7.6 0.0-12.0 % Eosinophils (%) (Auto) 0.7 0.0-7.0 % Basophils (%) (Auto) 0.3 0.0-2.0 % Neutrophils # (Auto) 7.9 1.6-8.6 10 ^3/uL Lymphocytes # (Auto) 2.0 0.4-5.4 10 ^3/uL Monocytes # (Auto) 0.8 0-1.3 10 ^3/uL Eosinophils # (Auto) 0.1 0-0.8 10 ^3/uL Basophils # (Auto) 0 0-0.2 10 ^3/uL Nucleated Red Blood Cells 0.8 % Sodium Level 135 L 136-145 mmol/L Potassium Level 4.4 3.5-5.1 mmol/L Chloride Level 100 98-107 mmol/L Carbon Dioxide Level 28 20-31 mmol/L Anion Gap 7 5-15 Blood Urea Nitrogen 13 9-23 mg/dL Creatinine 0.78 0.700-1.30 mg/dL Glomerular Filtration Rate Calc 100 >90 mL/min BUN/Creatinine Ratio 16.7 10.0-20.0 Serum Glucose 100 74-106 mg/dL Calcium Level 10.0 8.7-10.4 mg/dL Total Bilirubin 1.0 0.2-1.0 mg/dL Aspartate Amino Transferase (AST) 16 13-40 U/L Alanine Aminotransferase (ALT) 21 7-40 U/L Alkaline Phosphatase 92 46-116 U/L B-Type Natriuretic Peptide 12.92 0-100 pg/mL Total Protein 7.1 5.7-8.2 g/dL Albumin 4.8 3.2-4.8 g/dL Urine Color Yellow Yellow Urine Clarity Clear Clear Urine pH 6.0 5.0-9.0 Urine Specific Anita 1.037 H 1.001-1.035 Urine Protein Trace H Negative Urine Ketones 2+ H Negative Urine Blood Negative Negative /uL Urine Nitrite Negative Negative Urine Bilirubin Negative Negative Urine Urobilinogen Normal Negative mg/dL Urine Leukocyte Esterase Negative Negative /uL Urine RBC <1 0 - 3 /hpf Urine Microscopic WBC < 1 0-3 /HPF Urine Squamous Epithelial Cells None seen <5 /hpf Urine Bacteria None seen None Seen /hpf Urine Mucus Few None Seen Urine Glucose 4+ H Normal mg/dL Current Medications Medications (Trade) Dose Ordered Sig/Ana M Route Start Time Stop Time Status Last Admin Polyethylene Glycol/ Electrolytes (Golytely) 1 kit ONCE ONCE PO 05/22/24 15:45 05/22/24 15:46 DC 05/22/24 16:31 ORDERING PHYSICIAN: ZAIRA MILLAN MD PROCEDURE(s): CXRP - CHEST PORTABLE REASON: sob ORDER NUMBER(s): [id number], ACCESSION NUMBER(s): [id number] EXAM: XY CHEST PORTABLE HISTORY: sob COMPARISON: XY CHEST PORTABLE on DOS: 04/02/24, XY CHEST PORTABLE on DOS: 05/09 04/03, XY CHEST PORTABLE on DOS: 12/07/22, CXRP on DOS: 11/07/21, CHEST PORTABLE on DOS: 11/07/21 TECHNIQUE: Portable AP view of the chest was performed. FINDINGS: There is mild left lung base atelectasis or scarring. No other infiltrates, pneumothorax, or pulmonary edema. The heart is borderline ot enlarged. IMPRESSION: 1. Mild left lung base atelectasis or scarring. 2. The lungs are otherwise clear. RING PHYSICIAN: ZAIRA MILLAN MD PROCEDURE(s): ABPL - CT AB PEL WO CON-NO ORAL OR IV REASON: L flank and abd pain, no bm x 1 wk ORDER NUMBER(s): [id number], ACCESSION NUMBER(s): [id number] Exam: CT CT AB PEL WO CON-NO ORAL OR IV History: L flank and abd pain, no bm x 1 wk Comparison Study: None Technique: Multidetector spiral CT of the abdomen was performed from lung bases to pubic symphysis. Imaging was performed without IV contrast. Axial, coronal and sagittal multiplanar reformats were obtained from the axial data set by the technologist. Radiation Dose : 1. Abdomen/Pelvis: CTDIvol 25.56 mGy, DLP 1402.55 mGy*cm. Findings: Evaluation of solid organs is limited due to lack of intravenous contrast use. Lung Bases: Patchy atelectasis/ scarring right lung base. No pleural effusions. No consolidation. Coronary artery calcification. Liver: The liver is normal in size. No focal lesions. Gallbladder and Biliary Tree: Unremarkable Spleen: Unremarkable Pancreas: The pancreas is grossly normal in appearance. Adrenal Glands: Unremarkable Kidneys: Large left renal cyst seen medially. No renal calculi. No obstructive uropathy. Bladder: Grossly unremarkable for degree of distention. Bowel: The stomach is grossly normal in appearance. Small bowel and colon are normal in caliber and distribution. Normal appendix. Ascites: Absent Lymphadenopathy: No mesenteric, retroperitoneal or periportal lymphadenopathy. Abdominal Wall and Mesentery: Unremarkable. Vasculature: The visualized abdominal aorta is normal in size and caliber. Evaluation of abdominal and pelvic vessels is limited due to lack of intravenous contrast. Minimal vascular calcification of the aorta without aneurysm. Pelvic Organs: Unremarkable Musculoskeletal: No aggressive focal bony lesions, acute fractures or dislocation. IMPRESSION: 1. Scarring right lung base 2. Large left renal cystseen medially. Normal pancreas and gallbladder Normal appendix No bowel obstruction No aortic aneurysm Radiation optimization: All CT scans at this facility use at least one of these dose optimization techniques: automated exposure control mA and/or kV adjustment per patient size (includes targeted exams where dose is matched to clinical indication) or iterative reconstruction. X-Ray, Labs, Meds, VS Comment 63-year-old male with history of CHF, hypertension, diabetes, hyperlipidemia complaining of left-sided back pain and constipation Vitals remarkable for respiratory rate of 28, oxygen saturation 92% on room air Exam remarkable for left-sided CVA tenderness and diminished breath sounds on the left Rhythm strip independently interpreted by me: Sinus rhythm, rate 83, multiple PACs Chest x-ray IMPRESSION: 1. Mild left lung base atelectasis or scarring. 2. The lungs are otherwise clear. CT abdomen and pelvis IMPRESSION: 1. Scarring right lung base 2. Large left renal cystseen medially. Normal pancreas and gallbladder Normal appendix No bowel obstruction No aortic aneurysm CBC remarkable for hemoglobin 18.9, hematocrit 57.2, CMP remarkable for sodium 135, BNP normal, troponin negative x2, UA positive for protein, ketones and glucose Patient treated with the following in the ED: GoLYTELY 1 pack p.o., Toradol 30 mg IM, gabapentin mg p.o. On re-evaluation, patient's oxygen saturation is 94% on 2 L nasal cannula and he is not in respiratory distress. He is not on home oxygen. He states pain is still present. Other vitals were stable. Plan is to admit the patient for evaluation for control, respiratory support as needed and possible percutaneous drainage of the left renal cyst. Time of 1ST Reevaluation: 16:05 Reevaluation 1ST: Unchanged Patient Education/Counseling: Diagnosis, Treatment Family Education/Counseling: No Family Present Departure 1 Departure Time of Disposition: 21:17 Impression: Primary Impression: Renal cyst, left Additional Impressions: Constipation Qualified Codes: K59.00 - Constipation, unspecified Hypoxia Atelectasis of left lung Disposition: ADMITTED INPATIENT Admit to: Med Surg Condition: Guarded Critical Care Note Critical Care Time?: No Stability Stability form required: No Heart Score Heart Score: Heart Score Response (Comments) Value History N/A 0 EKG N/A 0 Age N/A 0 Risk Factors N/A 0 Troponin N/A 0 Total 0 I personally scribed for ZAIRA MILLAN MD ([facility]) on 05/22/24 at 16:28. Electronically submitted by Theresa Ward ([facility]). I personally scribed for ZAIRA MILLAN MD ([facility]) on 05/22/24 at 17:23. Electronically submitted by Theresa Ward ([facility]). ZAIRA MILLAN MD May 22, 2024 16:28
[2024-05-22] MEDS: GOLYTELY 4L KIT PO ONE (16:31)
--- NOTE | 2024-05-22 17:14 | DVH ---
Exam: CT CT AB PEL WO CON-NO ORAL OR IV History: L flank and abd pain, no bm x 1 wk Comparison Study: None Technique: Multidetector spiral CT of the abdomen was performed from lung bases to pubic symphysis. Imaging was performed without IV contrast. Axial, coronal and sagittal multiplanar reformats were ob tained from the axial data set by the technologist. Radiation Dose : 1. Abdomen/Pelvis: CTDIvol 25.56 mGy, DLP 1402.55 mGy*cm. Findings: Evaluation of solid organs is limited due to lack of intravenous contrast use. Lung Bases: Patchy atelectasis/ scarring right lung base. No pleural effusions. No consolidation. Cor onary artery calcification. Liver: The liver is normal in size. No focal lesions. Gallbladder and Biliary Tree: Unremarkable Spleen: Unremarkable Pancreas: The pancreas is grossly normal in appearance. Adrenal Glands: Unremarkable Kidneys: Large left renal cyst seen medially. No renal calculi. No obstructive uropathy. Bladder: Grossly unremarkable for degree of distention. Bowel: The stomach is grossly normal in appearance. Small bowel and colon are normal in caliber and d istribution. Normal appendix. Ascites: Absent Lymphadenopathy: No mesenteric, retroperitoneal or periportal lymphadenopathy. Abdominal Wall and Mesentery: Unremarkable. Vasculature: The visualized abdominal aorta is normal in size and caliber. Evaluation of abdominal a nd pelvic vessels is limited due to lack of intravenous contrast. Minimal vascular calcification of t he aorta without aneurysm. Pelvic Organs: Unremarkable Musculoskeletal: No aggressive focal bony lesions, acute fractures or dislocation. IMPRESSION: 1. Scarring right lung base 2. Large left renal cystseen medially. Normal pancreas and gallbladder Normal appendix No bowel obstruction No aortic aneurysm Radiation optimization: All CT scans at this facility use at least one of these dose optimization cherelle hniques: automated exposure control mA and/or kV adjustment per patient size (includes targeted exam s where dose is matched to clinical indication) or iterative reconstruction.
[2024-05-22 20:00] VITALS: O2SAT 94
--- NOTE | 2024-05-22 21:11 | ECG ---
[facility] Test Date: 2024-05-22 Test Time: 14:23:55 Pat Name: ANA HAZEL Department: ER Room: 0250 Gender: M [employer] Director: ALVA : 1960 Requested By: ZAIRA HERNANDEZ Order Number: [id number] Reading MD: Jackson Fulton Measurements Intervals [place] Rate: 83 P: 24 SC: 188 QRS: 113 QRSD: 166 T: -35 QT: 436 QTc: 513 Interpretive Statements Sinus rhythm Atrial premature complexes Consider left atrial enlargement RBBB and LPFB Electronically Signed On 05-23-2024 19:17:03 PDT by Jackson Fulton Please click the below link to view image of tracing.
[2024-05-22] MEDS: KETOROLAC TROMETH 30 MG/ML 1ML VIAL IM ONE (21:49)
[2024-05-22] MEDS: GABAPENTIN 300 MG CAP PO ONE (21:49)
[2024-05-22] MEDS ORDERED: MORPHINE SULFATE INJ 2 MG/ml SYRG IV PRN (22:00)
[2024-05-22] MEDS ORDERED: IPRATROPIUM BROM 0.5 MG/2.5ML INH SOL NEB PRN (22:00)
[2024-05-22] MEDS ORDERED: ALBUTEROL SULF 2.5 MG/0.5ML(0.5%) NEB SOLN NEB PRN (22:00)
--- NOTE | 2024-05-22 22:23 | DVHHPRES ---
History of Present Illness Resident Creating Document: CHAITANYA SUN RESIDENT Reason for Visit: LEFT BACK PAIN, History of Present Illness 63 years-old man with a past medical history of diabetes, CHF with reduced ejection fraction, degenerative disc disease and obstructive sleep apnea presented to the ED today with a main complaint left lower back pain. According to the patient this incident started to of 2 days ago he has been feeling the pain in the back left lower side however over the last 2 days and yesterday the pain has become so severe the patient is unable to do anything. Patient says that when he leans forward, the pain is worse but whenever he lays back or put pressure on it it does not hurt as much. On arrival to the ED patient was found to be in hypoxic respiratory failure was immediately started on 3 L of oxygen and saturating now 94%. Patient denied any sick contacts, chest pain, fever, cough, fluid overload or diarrhea. 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 Dyspnea, Edema, Lt Headedness, Other Gastrointestinal: Abdominal Pain, Constipation; No: Nausea, Vomiting, Diarrhea, Melena, Hematochezia, Other Genitourinary: No Dysuria, No Frequency, No Incontinence, No Hematuria, No Retention, No Other Musculoskeletal: No: other, neck pain, shoulder pain, arm pain, back pain, hand pain, leg pain, foot pain Skin: No: Rash, Lesions, Jaundice, Bruising, Other Neurological: No: Weakness, Numbness, Incoordination, Change in speech, Confusion, Seizures, Other Allergies: Coded Allergies: NO KNOWN ALLERGIES (Unverified , 02/20/22) Exam Vital Signs Vital Signs Date Time Temp Pulse Resp B/P (MAP) Pulse Ox O2 Delivery O2 Flow Rate FiO2 05/22/24 20:04 98.5 85 14 126/72 (90) 94 98.5 05/22/24 20:00 Nasal Cannula* 3 32 Exam General Appearance: Alert, Oriented X3, Cooperative, Mild respiratory distress HEENT: Atraumatic, PERRLA, EOMI, Mucous membrane moist/pink Respiratory: Clear to auscultation, Normal air movement Cardiovascular: Regular rate, Normal S1, Normal S2, No murmurs, no chest wall tenderness Abdominal: Enlarged,distended and tender, bowel sounds present, no scars noted Extremities: No clubbing, No cyanosis, No edema, Normal pulses, No tenderness/swelling Skin: No rashes, No breakdown, No significant lesion Neuro: Normal gait, Normal speech, Strength at 5/5 X4 ext, Normal tone, Sensation intact, Cranial nerves 3-12 NL, Reflexes 2+ Psych/Mental Status: Mental status NL, Mood NL Labs/Xrays Labs Test 05/22/24 15:55 05/22/24 14:50 05/22/24 14:17 Range/Units Troponin I High Sensitivity 5 </=54 ng/L White Blood Count 10.8 4.4-10.8 10^3/uL Red Blood Count 6.25 H 4.5-5.90 10^6/uL Hemoglobin 18.9 H 13.5-17.5 g/dL Hematocrit 57.2 H 41.0-53.0 % Mean Corpuscular Volume 91.4 80.0-100.0 fL Mean Corpuscular Hemoglobin 30.3 28.0-32.0 pg Mean Corpuscular Hemoglobin Concent 33.1 32.0-36.0 g/dL Red Cell Distribution Width 15.7 H 11.8-14.3 % Platelet Count 168 140-450 10^3/uL Mean Platelet Volume 9.8 6.9-10.8 fL Neutrophils (%) (Auto) 72.8 37.0-80.0 % Lymphocytes (%) (Auto) 18.6 10.0-50.0 % Monocytes (%) (Auto) 7.6 0.0-12.0 % Eosinophils (%) (Auto) 0.7 0.0-7.0 % Basophils (%) (Auto) 0.3 0.0-2.0 % Neutrophils # (Auto) 7.9 1.6-8.6 10 ^3/uL Lymphocytes # (Auto) 2.0 0.4-5.4 10 ^3/uL Monocytes # (Auto) 0.8 0-1.3 10 ^3/uL Eosinophils # (Auto) 0.1 0-0.8 10 ^3/uL Basophils # (Auto) 0 0-0.2 10 ^3/uL Nucleated Red Blood Cells 0.8 % Sodium Level 135 L 136-145 mmol/L Potassium Level 4.4 3.5-5.1 mmol/L Chloride Level 100 98-107 mmol/L Carbon Dioxide Level 28 20-31 mmol/L Anion Gap 7 5-15 Blood Urea Nitrogen 13 9-23 mg/dL Creatinine 0.78 0.700-1.30 mg/dL Glomerular Filtration Rate Calc 100 >90 mL/min BUN/Creatinine Ratio 16.7 10.0-20.0 Serum Glucose 100 74-106 mg/dL Calcium Level 10.0 8.7-10.4 mg/dL Total Bilirubin 1.0 0.2-1.0 mg/dL Aspartate Amino Transferase (AST) 16 13-40 U/L Alanine Aminotransferase (ALT) 21 7-40 U/L Alkaline Phosphatase 92 46-116 U/L B-Type Natriuretic Peptide 12.92 0-100 pg/mL Total Protein 7.1 5.7-8.2 g/dL Albumin 4.8 3.2-4.8 g/dL Urine Color Yellow Yellow Urine Clarity Clear Clear Urine pH 6.0 5.0-9.0 Urine Specific [place] 1.037 H 1.001-1.035 Urine Protein Trace H Negative Urine Ketones 2+ H Negative Urine Blood Negative Negative /uL Urine Nitrite Negative Negative Urine Bilirubin Negative Negative Urine Urobilinogen Normal Negative mg/dL Urine Leukocyte Esterase Negative Negative /uL Urine RBC <1 0 - 3 /hpf Urine Microscopic WBC < 1 0-3 /HPF Urine Squamous Epithelial Cells None seen <5 /hpf Urine Bacteria None seen None Seen /hpf Urine Mucus Few None Seen Urine Glucose 4+ H Normal mg/dL Assessment/Plan Assessment/Plan Acute hypoxic respiratory failure --> 3 L of oxygen with an O2 sat of 94% --> ? ABG --> No fluid overload Left renal cyst --> Pain control with Tylenol and NSAID --> Renal US --> Urology consult Constipation likely medication induced --> Golyte --> ? try fleet enema Degenerative discs disease, Cervical region --> Tylenol with codeine started about a week ago Obstructive Sleep apnea --> awaiting sleep studies --> was on CPAP in the past --> Give CPAP when sleeping Morbid obesity --> on Ozempic --> current weight 290lbs down from 360lbs Chronic HFrEF --> EF 45 % (05/2023) --> Continue GDMT --> Continue oral furosemide Nonischemic cardiomyopathy --> LHC 05/23/2023 unremarkable Polycythemia --> repeat CBC Diabetes Mellitus --> Continue lantus --> Continue insulin --> Sliding scale Mild hyponatremia --> Monitor Goal of care discussed for more than 30 minute, full code Case and plan discussed with Dr. Casey Plan discussed with: Patient My Orders Orders - CHAITANYA SUN RESIDENT Procedure Category Date Status Time Admit ADMIT 05/22/24 Transmitted 21:57 Code Status CODE 05/22/24 Transmitted 21:57 Vital Signs [facility] 05/22/24 Transmitted 21:57 Review Orders With [facility] 05/22/24 Transmitted Adm. 21:57 Notify Of Changes [facility] 05/22/24 Transmitted From Base 21:57 Advance Directive [facility] 05/22/24 Transmitted 21:57 Allergies [facility] 05/22/24 Transmitted 21:57 Morphine Sulfate [facility] 05/22/24 Transmitted Injection 22:00 Stat Ekg For Chest [facility] 05/22/24 Transmitted Pain 21:57 Notify Of Changes [facility] 05/22/24 Transmitted From Base 21:57 Hemoglobin A1c LAB 05/22/24 Transmitted 21:57 Basic Metabolic Panel LAB 05/23/24 Verified 04:00 Complete Blood Count LAB 05/23/24 Verified 04:00 Drug Screen LAB 05/22/24 Transmitted 21:57 Enema ED NURSING 05/22/24 Transmitted Albuterol Medneb PHA 05/22/24 Transmitted (Ventolin Medneb) 22:00 Ipratropium Medneb PHA 05/22/24 Transmitted (Atrovent Medneb) 22:00 Date of Service: May 22, 2024 Billing Provider: DES CASEY MD Common Visit Codes: [id number] INP/OBS CARE (HIGH) Secondary Visit Codes: [id number] CARE PLAN 30 MINUTES CHAITANYA SUN RESIDENT May 22, 2024 22:23 DES CASEY MD May 23, 2024 01:02
[2024-05-22 22:33] VITALS: PULSE 78; RESP 23; O2SAT 94
[2024-05-22 23:04] VITALS: BP 150/94; PULSE 85; RESP 20; TEMP 98; O2SAT 93
[2024-05-22] MEDS: ENOXAPARIN SOD 40 MG/0.4 ML SYRINGE SC ONE (23:04)
[2024-05-22 23:09] LABS: Opiate Scree,Urine Neg (NEGATIVE)
[2024-05-22 23:15] LABS: Amphetamine Screen, Urine Neg (NEGATIVE); Barbiturate Scree,Urine Neg (NEGATIVE); Benzodiazephine Screen, Urine Neg (NEGATIVE); Cannabinoid Screen, Urine Neg (NEGATIVE); Cocaine Screen, Urine Neg (NEGATIVE); Phencyclidine Screen, Urine Neg (NEGATIVE)
[2024-05-22] MEDS ORDERED: IBUPROFEN 400 MG TAB PO PRN (23:15)
[2024-05-22 23:21] VITALS: BP 119/81; PULSE 88; RESP 16; TEMP 97.5; O2SAT 93
[2024-05-23 03:10] LABS: Base Excess 2.3 mmol/L (-2.0-3.0)
--- NOTE | 2024-05-23 04:52 | DVH ---
US KIDNEY HISTORY: CT 05/22/2024 COMPARISON: None TECHNIQUE: Real-time ultrasonography of the kidneys and urinary bladder was performed. FINDINGS: The right kidney measures 11.1 cm in length. The left kidney measures 10.8 cm in length. There is mi ld thinning and lobulation of the renal cortices. There is a 7.0 by 6.3 cm anechoic lobulated cyst in the left kidney. The urinary bladder is contracted. IMPRESSION: Simple appearing 7 cm left renal cyst.
[2024-05-23 05:00] VITALS: BP 116/78; PULSE 84; RESP 16; TEMP 98; O2SAT 93
[2024-05-23 08:00] VITALS: RESP 20
[2024-05-23 08:08] LABS: Basophils # (auto) 0 10 ^3/uL (0-0.2); Basophils % (auto) 0.3 % (0.0-2.0); Eosinophils # (auto) 0.1 10 ^3/uL (0-0.8); Eosinophils % (auto) 1.1 % (0.0-7.0); Hematocrit 51.3 % (41.0-53.0); Hemoglobin 17.5 g/dL (13.5-17.5); Lymphocytes # (auto) 1.7 10 ^3/uL (0.4-5.4); Lymphocytes % (auto) 19.8 % (10.0-50.0); Mean Corpuscular Hemoglobin 31.3 pg (28.0-32.0); Mean Corpuscular Hgb Conc. 34.2 g/dL (32.0-36.0); Mean Corpuscular Volume 91.5 fL (80.0-100.0); Monocytes # (auto) 0.8 10 ^3/uL (0-1.3); Monocytes % (auto) 9.3 % (0.0-12.0); Neutrophils % (auto) 69.5 % (37.0-80.0); Platelet Count (auto) 147 10^3/uL (140-450); Red Cell Distribution Width 15.5 % (11.8-14.3); White Blood Cell 8.6 10^3/uL (4.4-10.8)
[2024-05-23 08:32] LABS: Anion Gap 9 (5-15); Carbon Dioxide 26 mmol/L (20-31); Chloride 100 mmol/L (98-107); Potassium 3.9 mmol/L (3.5-5.1)
[2024-05-23 08:33] LABS: Calcium 9.5 mg/dL (8.7-10.4)
[2024-05-23 08:38] LABS: BUN/Creatinine Ratio 19.3 (10.0-20.0); Blood Urea Nitrogen 17 mg/dL (9-23)
[2024-05-23 08:40] LABS: Glucose 124 mg/dL (74-106); Sodium 135 mmol/L (136-145)
[2024-05-23] MEDS: ACETAMINOPHEN 325 MG TAB PO PRN (08:45)
[2024-05-23 09:00] VITALS: BP_SYST 126; BP_SYST 139; BP_DIAS 78; BP_DIAS 92; PULSE 69; PULSE 76; RESP 16; RESP 20; TEMP 97.3; TEMP 97.5; O2SAT 92; O2SAT 96
[2024-05-23] MEDS: CHOLECALCIFEROL (VITD3) 1,000UNIT=25mCg TAB PO SCH (09:23)
[2024-05-23] MEDS: ATORVASTATIN 20 MG TAB PO SCH (09:26)
[2024-05-23] MEDS: EMPAGLIFLOZIN 10 MG TAB PO SCH (09:27)
[2024-05-23] MEDS: ASPirin 81 mg TAB PO SCH (09:46)
[2024-05-23] MEDS: CARVEDILOL 3.125 MG TAB PO SCH (09:47)
[2024-05-23] MEDS: LOSARTAN POTASSIUM 50 MG TAB PO SCH (09:47)
[2024-05-23] MEDS: FUROSEMIDE 40 MG TAB PO SCH (09:48)
[2024-05-23 13:00] VITALS: BP 136/85; PULSE 82; RESP 20; TEMP 98.1; O2SAT 90
--- NOTE | 2024-05-23 16:05 | DVHDS2 ---
Discharge Summary Date of Admission May 22, 2024 at 21:57 Date of Discharge: May 23, 2024 Labs/Diagnostic Data: Laboratory Results Test 05/23/24 06:55 05/23/24 03:01 05/22/24 15:55 05/22/24 14:50 White Blood Count 8.6 10^3/uL (4.4-10.8) Red Blood Count 5.60 10^6/uL (4.5-5.90) Hemoglobin 17.5 g/dL (13.5-17.5) Hematocrit 51.3 % (41.0-53.0) Mean Corpuscular Volume 91.5 fL (80.0-100.0) Mean Corpuscular Hemoglobin 31.3 pg (28.0-32.0) Mean Corpuscular Hemoglobin Concent 34.2 g/dL (32.0-36.0) Red Cell Distribution Width 15.5 % (11.8-14.3) Platelet Count 147 10^3/uL (140-450) Mean Platelet Volume 10.2 fL (6.9-10.8) Neutrophils (%) (Auto) 69.5 % (37.0-80.0) Lymphocytes (%) (Auto) 19.8 % (10.0-50.0) Monocytes (%) (Auto) 9.3 % (0.0-12.0) Eosinophils (%) (Auto) 1.1 % (0.0-7.0) Basophils (%) (Auto) 0.3 % (0.0-2.0) Neutrophils # (Auto) 6.0 10 ^3/uL (1.6-8.6) Lymphocytes # (Auto) 1.7 10 ^3/uL (0.4-5.4) Monocytes # (Auto) 0.8 10 ^3/uL (0-1.3) Eosinophils # (Auto) 0.1 10 ^3/uL (0-0.8) Basophils # (Auto) 0 10 ^3/uL (0-0.2) Nucleated Red Blood Cells 0.0 % Sodium Level 135 mmol/L (136-145) Potassium Level 3.9 mmol/L (3.5-5.1) Chloride Level 100 mmol/L (98-107) Carbon Dioxide Level 26 mmol/L (20-31) Anion Gap 9 (5-15) Blood Urea Nitrogen 17 mg/dL (9-23) Creatinine 0.88 mg/dL (0.700-1.30) Glomerular Filtration Rate Calc 96 mL/min (>90) BUN/Creatinine Ratio 19.3 (10.0-20.0) Serum Glucose 124 mg/dL (74-106) Calcium Level 9.5 mg/dL (8.7-10.4) Blood Gas Specimen Type Arterial Blood Gas Sample Site Right radial Blood Gas Patient Temperature 37.0 Arterial Blood Date Drawn [id number] Arterial Blood pH 7.381 (7.350-7.450) Arterial Blood Partial Pressure CO2 49.3 mmHg (35.0-48.0) Arterial Blood Partial Pressure O2 66.3 mmHg (83.0-108.0) Arterial Blood HCO3 28.6 mmol/L (21.0-28.0) Arterial Blood Oxygen Saturation 90.2 % (94.0-98.0) Arterial Blood Base Excess 2.3 mmol/L (-2.0-3.0) Arterial Blood Oxyhemoglobin 88.7 % (94.0-98.0) Arterial Blood Carboxyhemoglobin 1.1 % (0.5-1.5) Arterial Blood Methemoglobin 0.6 % (0.0-1.5) Mikel Test Yes Blood Gas Total Hemoglobin 18.00 g/dL (13.5-17.5) Blood Gas Modality Resus bag FiO2 % 21.0 Specimen Drawn By Troponin I High Sensitivity 5 ng/L (</=54) Thyroid Stimulating Hormone (TSH) 2.05 uIU/mL (0.55-4.78) Total Bilirubin 1.0 mg/dL (0.2-1.0) Aspartate Amino Transferase (AST) 16 U/L (13-40) Alanine Aminotransferase (ALT) 21 U/L (7-40) Alkaline Phosphatase 92 U/L (46-116) B-Type Natriuretic Peptide 12.92 pg/mL (0-100) Total Protein 7.1 g/dL (5.7-8.2) Albumin 4.8 g/dL (3.2-4.8) Test 05/22/24 14:17 05/22/24 14:15 Urine Color Yellow (Yellow) Urine Clarity Clear (Clear) Urine pH 6.0 (5.0-9.0) Urine Specific [place] 1.037 (1.001-1.035) Urine Protein Trace (Negative) Urine Ketones 2+ (Negative) Urine Blood Negative /uL (Negative) Urine Nitrite Negative (Negative) Urine Bilirubin Negative (Negative) Urine Urobilinogen Normal mg/dL (Negative) Urine Leukocyte Esterase Negative /uL (Negative) Urine RBC <1 /hpf (0 - 3) Urine Microscopic WBC < 1 /HPF (0-3) Urine Squamous Epithelial Cells None seen /hpf (<5) Urine Bacteria None seen /hpf (None Seen) Urine Mucus Few (None Seen) Urine Glucose 4+ mg/dL (Normal) Urine Opiates Screen Neg (NEGATIVE) Urine Fentanyl Screen Neg (NEGATIVE) Urine Barbiturates Screen Neg (NEGATIVE) Urine Phencyclidine Screen Neg (NEGATIVE) Urine Amphetamines Screen Neg (NEGATIVE) Urine Benzodiazepines Screen Neg (NEGATIVE) Urine Cocaine Screen Neg (NEGATIVE) Urine Cannabinoids Screen Neg (NEGATIVE) Hemoglobin A1c 8.4 % A1C (<5.7) Other Laboratory Tests 05/23/24 06:55 Brief Hx & Hospital Course: 63-year-old male with a known history of chronic congestive heart failure with systolic dysfunction, diabetes mellitus type 2, hypertension, dyslipidemia, sleep apnea, morbid obesity class III who initially placed with the hospital with a left-sided back pain. Patient was found to have incidental finding of left renal cyst. Patient was denies any dysuria hematuria. Patient was currently being managed for pain management as an outpatient with Tylenol with codeine. Patient was found to have constipation. Patient was currently stable to be discharged with close follow up as an outpatient with the PCP and Urology. Condition at Discharge: Stable Final Diagnosis/Problems List 1. Left-sided back pain, currently improved 2. Chronic pain syndrome currently on pain management as an outpatient 3. Morbid obesity class three 4. Obesity hypoventilation syndrome/sleep apnea currently on CPAP at night at home 5. Diabetes mellitus type 2 6. Constipation, resolved bruit 6. Chronic congestive heart failure exacerbation with systolic dysfunction currently compensated 7. Left renal cyst outpatient follow up with primary and in one week , may consider urology consultation as an outpatient Discharge Disposition: Home SNF Discharge Will this Physician continue t: No Discharge Instruct/Medications Diet: Cardiac 2g Na,low cholest Diet comment: 1800 ADA diet Activity: See Comment Activity comment: No signing of legal documents, no planning on heavy machinery, no driving while on narcotics Follow Up/Referral: Follow up with the PCP in one week Follow up with the Urology for left renal cyst as an outpatient. Medications: Resume home medications. Discharge Statement: "Patient was advised to return to the ER or call 911 if any headaches, dizziness, shortness of breath, chest pain, abdominal pain, bleeding, fevers, or worsening of medical condition. Patient was counseled about treatment plan, medications, possible side effects, patientverbalized understanding. All questions were answered to the best of my ability. This discharge took greater then 30 minutes in planning, reviewing documentation, counseling the patient, and discussing with other team members." ASSESSMENT ASSESSMENT Assessment 1. Left-sided back pain, currently improved 2. Chronic pain syndrome currently on pain management as an outpatient 3. Morbid obesity class three 4. Obesity hypoventilation syndrome/sleep apnea currently on CPAP at night at home 5. Diabetes mellitus type 2 6. Constipation, resolved bruit 6. Chronic congestive heart failure exacerbation with systolic dysfunction currently compensated 7. Left renal cyst outpatient follow up with primary and in one week , may consider urology consultation as an outpatient Date of Service: May 23, 2024 Billing Provider: PALMER BUSBY MD Common Visit Codes: NOT BILLABLE PALMER BUSBY MD May 23, 2024 16:05
[2024-05-23 17:00] VITALS: BP 113/85; PULSE 80; RESP 20; TEMP 97.2; O2SAT 91
[2024-05-23 17:58] VITALS: BP 128/82; PULSE 81; RESP 18; TEMP 36.2; O2SAT 93
[2024-05-23] MEDS ORDERED: INSULIN LANTUS (GLARGINE) 1 /0.01ml (100units/ml) SC SCH (22:00)
[2024-05-23] MEDS ORDERED: ENOXAPARIN SOD 40 MG/0.4 ML SYRINGE SC SCH (22:00)
== END 2024-05-23 19:13 | disposition home or self-care (01) | DRG 347 ==
LOC: ER 13:59 → OVERFLOW 21:57 → EAST 23:21
PROVIDERS: ADMIT Internal Medicine; ATTEND Internal Medicine
DX: M54.9 Dorsalgia, unspecified (principal); J96.01 Acute respiratory failure with hypoxia; I42.8 Other cardiomyopathies; E66.2 Morbid (severe) obesity with alveolar hypoventilation; E87.1 Hypo-osmolality and hyponatremia; D75.1 Secondary polycythemia; E11.9 Type 2 diabetes mellitus without complications; I50.22 Chronic systolic (congestive) heart failure; M50.30 Other cervical disc degeneration, unspecified cervical region; I11.0 Hypertensive heart disease with heart failure; N28.1 Cyst of kidney, acquired; G89.4 Chronic pain syndrome; K59.00 Constipation, unspecified; J98.11 Atelectasis; Z79.84 Long term (current) use of oral hypoglycemic drugs; Z79.899 Other long term (current) drug therapy; Z79.82 Long term (current) use of aspirin; Z79.4 Long term (current) use of insulin; Z68.42 Body mass index [BMI] 45.0-49.9, adult
CPT/HCPCS: 36415; 36600; 71045; 74176; 76775; 80048; 80053; 80307; 81001; 82805; 83036; 83880; 84443; 84484; 85025; 93005; 96372; G0378; J1885